=== PATIENT | female | born 1945 | race Caucasian/White ===

== ENCOUNTER → 2016-07-06 | Outpatient (CLI) | payer MEDICARE ==
--- NOTE | 2016-07-06 14:51 | REPMRS ---
Patient History The patient states she had a clinical breast exam in 07/14 Patient is postmenopausal. No known family history of cancer. Took hormonal contraceptives for 2 years. Took estrogen for 3 months. Took progesterone for 3 months. Digital Woman Screen Mammo: July 06, 2016 - Exam #: [id number] Bilateral CC and MLO view(s) were taken. Technologist: Kala Skinner, Technologist Prior study comparison: May 16, 2015, digital woman screen mammo performed at [facility]. May 04, 2013, bilateral bilat screen digital mammo, performed at [facility] ([facility]). April 30, 2011, bilateral digital mammo screening bilat, performed at [facility] ([facility]). FINDINGS: There are scattered fibroglandular densities. There has been no change in the appearance of the mammogram from the prior studies. There is a mild amount of scattered fibroglandular density which is fairly symmetric. There is no interval development of dominant mass, architectural distortion, or clustered microcalcification suggestive of malignancy. ASSESSMENT: BI-RADS/ACR category 1 mammogram. Negative. Recommendation Routine screening mammogram in 1 year (for women over age 40). This mammogram was interpreted with the aid of an FDA-approved computer-aided dectection system. Electronically Signed By: Cyril Myrick MD 07/06/16 0213
== END ==
LOC: M WHC 13:49
PROVIDERS: ATTEND Nurse Practitioner Family
DX: Z12.31 Encounter for screening mammogram for malignant neoplasm of breast (principal); Z78.0 Asymptomatic menopausal state
CPT/HCPCS: G0202; G0463

== ENCOUNTER → 2016-12-01 | Outpatient (REF) | payer MEDICARE ==
[~2016-12-01] MED LIST: ALBU17IN INH; ASPI81TA85 PO; ATEN25TA PO; ATOR1TAB21 PO; CALC600T21 PO; CLAR10CA3 PO; LOSA100T36 PO; MONT10TA2 PO
[2016-12-01 15:44] LABS: ALBUMIN 3.7 GM/DL (3.2-5.2); ALBUMIN/GLOBULIN RATIO 1.19 (1.00-1.93); BILIRUBIN,TOTAL 0.8 MG/DL (0.2-1.0); CREATININE FOR GFR 1.14 MG/DL (0.55-1.02); POTASSIUM SERUM 4.3 MEQ/L (3.5-5.1); TOTAL PROTEIN 6.8 GM/DL (6.4-8.2)
== END ==
LOC: M SFHCLACO 08:53
PROVIDERS: ATTEND Physician Assistant
DX: I10 Essential (primary) hypertension (principal); E78.2 Mixed hyperlipidemia; E55.9 Vitamin D deficiency, unspecified

== ENCOUNTER → 2016-12-11 | Outpatient (REF) | payer MEDICARE ==
[~2016-12-11] MED LIST changes: -CALC600T21 PO; +CALC600T60 PO
== END ==
LOC: M SFHCLACO 10:54
PROVIDERS: ATTEND Physician Assistant
DX: R73.9 Hyperglycemia, unspecified (principal)
CPT/HCPCS: 36415; 83036; 93005; G0463

== ENCOUNTER → 2016-12-15 | Outpatient (CLI) | payer MEDICARE ==
[~2016-12-15] MED LIST changes: +CALC600T21 PO; -CALC600T60 PO
[2016-12-15 14:18] LABS: ANION GAP 3 MEQ/L (8-16); BLOOD UREA NITROGEN 12 MG/DL (7-18); CALCIUM LEVEL 9.8 MG/DL (8.8-10.2); CARBON DIOXIDE LEVEL 33 MEQ/L (21-32); CHLORIDE LEVEL 106 MEQ/L (98-107); CREATININE FOR GFR 0.94 MG/DL (0.55-1.02); GLOMERULAR FILTRATION RATE > 60.0 (>39); GLUCOSE, FASTING 97 MG/DL (83-110); POTASSIUM SERUM 4.3 MEQ/L (3.5-5.1); SODIUM LEVEL 142 MEQ/L (136-145)
== END ==
LOC: M LAB 12:21
PROVIDERS: ATTEND Ophthalmology
DX: H25.12 Age-related nuclear cataract, left eye (principal)

== ENCOUNTER → 2016-12-31 | Day surgery (SDC) | payer MEDICARE ==
[~2016-12-31] VITALS: Ht 157.5 cm; Wt 71.2 kg
[~2016-12-31] MED LIST changes: -CALC600T21 PO; +CALC600T60 PO; +DUOVISC (0.50ML VISCOAT/0.55ML PROVISC) OPHTH KIT As Ordered ONE; +LR 500 ML IV ONE; +MIDAZOLAM INJ 2 MG/2 ML VIAL (J2250) As Ordered ONE; +fentaNYL 100 MCG/2 ML INJECTION (J3010) As Ordered ONE
[2016-12-31] MEDS: PROPARACAINE 0.5% OPHTH SOL 15ML OS ONE (07:24)
[2016-12-31] MEDS: OFLOXACIN 0.3 % (OCUFLOX) OPTH SOL 5ML OS ONE (07:26)
[2016-12-31] MEDS: TROPICAMIDE 1% OPHTH SOLN 2ML OS ONE (07:27)
[2016-12-31] MEDS: PHENYLEPHRINE 2.5% OPHTH SOL 2ML OS ONE (07:28)
[2016-12-31] MEDS: POVIDONE-IODINE 5% OPHTH PREP SOL 30ML As Ordered ONE (08:23)
[2016-12-31] MEDS: LIDOCAINE 4% INJ 5 ML AMP As Ordered ONE (08:26)
[2016-12-31] MEDS: BALANCED SALT IRRIGATION SOLUTION 500ML BAG (FOR OR EYE MACHINE) As Ordered ONE (08:37)
[2016-12-31] MEDS: LIDOCAINE 0.75%/EPINEPHRINE 0.025% IN BSS 1ML SYR INTRACAMERAL (OR ONLY) As Ordered ONE (08:38)
[2016-12-31] MEDS: CEFUROXIME 1MG/0.1ML INTRACAMERAL INJ As Ordered ONE (08:38)
[2016-12-31] MEDS: ACETYLCHOLINE OPHTH SOLN 1% 2ML (MIOCHOL-E) As Ordered ONE (08:38)
[2016-12-31] MEDS: DUOVISC (0.50ML VISCOAT/0.55ML PROVISC) OPHTH KIT As Ordered ONE (08:38)
[2016-12-31 09:15] VITALS: BP 146/72
--- NOTE | 2017-01-01 22:52 | RO ---
DATE OF PROCEDURE: 12/31/2016 PREOPERATIVE DIAGNOSES: 1. Dense visually significant nuclear sclerotic cataract left eye. 2. Small pupil left eye. POSTOPERATIVE DIAGNOSES: 1. Dense visually significant nuclear sclerotic cataract left eye. 2. Small pupil left eye. 3. Intraoperative floppy iris syndrome left eye. PROCEDURE: Complex cataract extraction with insertion of intraocular lens implant AU00T0, 22.5 diopters, left eye, with use of Malyugin ring. SURGEON: Mendoza Hicks DO SILVERWARE BUFFING MACHINE OPERATOR: ANESTHESIA: Local with monitored anesthesia care (MAC) COMPLICATIONS: None. POSTOPERATIVE CONDITION: Stable. INDICATION FOR SURGERY: Blurred vision left eye affecting patient's activities of daily living. DESCRIPTION OF PROCEDURE: The patient was seen in the preoperative area and properly identified. The correct operative eye was identified and marked. Attention was turned to that eye. The patient received optical antibiotics in the preoperative area. The patient then received topical dilating drops consisting of tropicamide and phenylephrine. The patient was then transferred to the operating room. The correct side was reidentified. The patient received topical anesthetics and antibiotics on the surface of the eye. The eye was prepped and draped in a sterile fashion. The upper and lower eyelids were isolated with Tegaderm tape, and the lids were held open with an adjustable speculum. Using a sideport blade, a paracentesis incision was made. Shugarcaine was then injected into the anterior chamber. Viscoelastic was then injected into the anterior chamber through the paracentesis. Using a 2.6 mm sharp-tipped keratome, the anterior chamber was entered via a temporal clear corneal incision. A 7mm Malyugin ring was placed without difficulty. A continuous curvilinear capsulorrhexis was created with the aid of a 26-gauge cystotome and Utrata forceps. Hydrodissection was performed with BSS on a blunt cannula until the nucleus was freely mobile. The crystalline lens was phacoemulsified and aspirated. Additional cohesive viscoelastic was placed into the capsular bag to deepen it. An AU00T0, 22.5 diopter lens was placed into the capsular bag and confirmed by visualizing the continuous curvilinear capsulorrhexis. The Malyugin ring was removed from the eye. Additional irrigation and aspiration was used to remove cortical material. The Malyugin ring was removed from the eye, and irrigation and aspiration was then used removing the remaining viscoelastic. The clear corneal incision was hydrated with BSS on a blunt cannula. The lens was well positioned. The incisions were then tested for leaks and found to be negative. The eye was then palpated for appropriate pressure and adjusted accordingly with BSS. The eyelid speculum was then carefully removed. A shield was placed over the eye. The patient tolerated the procedure well and was discharged to the recovery unit in a stable condition. RONNIE
== END | disposition home or self-care (01) ==
LOC: M SDC 07:01
PROVIDERS: ATTEND Ophthalmology
DX: H25.12 Age-related nuclear cataract, left eye (principal); H57.03 Miosis; H21.81 Floppy iris syndrome; E78.5 Hyperlipidemia, unspecified; I10 Essential (primary) hypertension; J45.909 Unspecified asthma, uncomplicated; R01.1 Cardiac murmur, unspecified; I35.0 Nonrheumatic aortic (valve) stenosis; I44.7 Left bundle-branch block, unspecified; K21.9 Gastro-esophageal reflux disease without esophagitis; M54.32 Sciatica, left side; R73.9 Hyperglycemia, unspecified; J30.9 Allergic rhinitis, unspecified; Z88.6 Allergy status to analgesic agent; Z79.899 Other long term (current) drug therapy; Z79.82 Long term (current) use of aspirin; Z87.42 Personal history of other diseases of the female genital tract; Z98.51 Tubal ligation status
CPT/HCPCS: 66982; J2250; J3010; V2632

== ENCOUNTER 2017-02-04 09:43 | Day surgery (SDC) | payer MEDICARE ==
[~2017-02-04 09:43] MED LIST changes: +ACETYLCHOLINE OPHTH SOLN 1% 2ML (MIOCHOL-E) As Ordered ONE; +BALANCED SALT IRRIGATION SOLUTION 500ML BAG (FOR OR EYE MACHINE) As Ordered ONE; +LIDOCAINE 0.75%/EPINEPHRINE 0.025% IN BSS 1ML SYR INTRACAMERAL (OR ONLY) As Ordered ONE; +LIDOCAINE 4% INJ 5 ML AMP As Ordered ONE; -LR 500 ML IV ONE; +OFLOXACIN 0.3 % (OCUFLOX) OPTH SOL 5ML XX ONE; +PHENYLEPHRINE 2.5% OPHTH SOL 2ML XX ONE; +POVIDONE-IODINE 5% OPHTH PREP SOL 30ML As Ordered ONE; +PROPARACAINE 0.5% OPHTH SOL 15ML XX ONE; +TROPICAMIDE 1% OPHTH SOLN 2ML XX ONE
[2017-02-04] MEDS ORDERED: D5W/0.2% SODIUM CHLORIDE 250 ML IV ONE (10:00)
[2017-02-04 12:15] VITALS: BP 138/84
[2017-02-04] MEDS ORDERED: CEFUROXIME 1MG/0.1ML INTRACAMERAL INJ As Ordered ONE (14:27)
--- NOTE | 2017-02-05 07:05 | RO ---
DATE OF PROCEDURE: 02/04/2017 PREOPERATIVE DIAGNOSIS: Visually significant nuclear sclerotic cataract right eye. POSTOPERATIVE DIAGNOSIS: Visually significant nuclear sclerotic cataract right eye. PROCEDURE: Cataract extraction with use of phacoemulsification, and placement of intraocular lens, AU00T0, 22.5 diopter right eye. SURGEON: Mendoza Hicks DO CONCRETE SPREADER: ANESTHESIA: Local with monitored anesthesia care (MAC). COMPLICATIONS: None. POSTOPERATIVE CONDITION: Stable. INDICATION FOR SURGERY: Blurred vision right eye affecting patient's activities of daily living. DESCRIPTION OF PROCEDURE: The patient was seen in the preoperative area and properly identified. The correct operative eye was identified and marked. Attention was turned to that eye. The patient received topical antibiotics in the preoperative area. The patient then received topical dilating drops consisting of Tropicamide and Phenylephrine. The patient was then transferred to the operating room. The correct side was re-identified. The patient received topical anesthetics and antibiotics on the surface of the eye. The eye was prepped and draped in a sterile fashion. The upper and lower eyelids were isolated with Tegaderm tape, and the lids were held open with an adjustable speculum. Using a sideport blade, a paracentesis incision was made. Intraocular preservative-free lidocaine was then injected into the anterior chamber. Viscoelastic was then injected into the anterior chamber through the paracentesis. Using a 2.65 mm sharp-tipped keratome, the anterior chamber was entered via a temporal clear corneal incision. A continuous curvilinear capsulorrhexis was created with the aid of a 26g cystotome and utrata forceps. Hydrodissection was performed with balanced salt solution (BSS) on a blunt cannula until the nucleus was freely mobile. The crystalline lens was phacoemulsified and aspirated. Additional cohesive viscoelastic was placed into the capsular bag to deepen it. An AU00T0, 22.5 diopter lens was placed into the capsular bag and confirmed by visualizing the continuous curvilinear capsulorrhexis. Additional irrigation and aspiration was used to remove cortical material and remaining viscoelastic. The clear corneal incision was hydrated with BSS on a blunt cannula. The lens was well positioned. The incisions were then tested for leaks and found to be negative. The eye was then palpated for appropriate pressure and adjusted accordingly with BSS. The eyelid speculum was carefully removed. A shield was placed over the eye. The patient tolerated the procedure well and was discharged to the recovery unit in a stable condition. RONNIE
== END 2017-02-04 12:20 | disposition home or self-care (01) ==
LOC: M SDC 09:43
PROVIDERS: ATTEND Ophthalmology
DX: H25.11 Age-related nuclear cataract, right eye (principal); I10 Essential (primary) hypertension; E78.5 Hyperlipidemia, unspecified; K21.9 Gastro-esophageal reflux disease without esophagitis; J45.909 Unspecified asthma, uncomplicated; Z79.82 Long term (current) use of aspirin; Z79.899 Other long term (current) drug therapy; Z88.8 Allergy status to other drugs, medicaments and biological substances
CPT/HCPCS: 66984; J2250; J3010; V2632

== ENCOUNTER → 2017-07-06 | Outpatient (REF) | payer MEDICARE ==
[2017-07-06 15:16] LABS: ALBUMIN 3.7 GM/DL (3.2-5.2); ALBUMIN/GLOBULIN RATIO 1.12 (1.00-1.93); ALKALINE PHOSPHATASE 96 U/L (45-117); ALT/SGPT 23 U/L (12-78); ANION GAP 6 MEQ/L (8-16); AST/SGOT 18 U/L (7-37); BILIRUBIN,TOTAL 0.7 MG/DL (0.2-1.0); BLOOD UREA NITROGEN 12 MG/DL (7-18); CALCIUM LEVEL 9.5 MG/DL (8.8-10.2); CARBON DIOXIDE LEVEL 31 MEQ/L (21-32); CHLORIDE LEVEL 106 MEQ/L (98-107); CHOLESTEROL LEVEL 160 MG/DL (<200); CHOLESTEROL RISK RATIO 3.404 (<5); CREATININE FOR GFR 0.98 MG/DL (0.55-1.02); GLOMERULAR FILTRATION RATE 59.6 (>39); GLUCOSE, FASTING 111 MG/DL (83-110); HDL CHOLESTEROL 47 MG/DL (>40); LDL CHOLESTEROL 81.2 MG/DL (<100); NON-HDL-C 113 MG/DL; SODIUM LEVEL 143 MEQ/L (136-145); TRIGLYCERIDES LEVEL 159 MG/DL (<150)
[2017-07-06 15:23] LABS: ESTIMATED AVERAGE GLUCOSE 128 MG/DL (60-110); HEMOGLOBIN A1c 6.1 %
[2017-07-06 15:24] LABS: TOTAL 25(OH) VITAMIN D 44.4 NG/ML (30.0-100.0)
== END ==
LOC: M SFHCLACO 10:04
DX: I10 Essential (primary) hypertension (principal); E78.2 Mixed hyperlipidemia; R73.9 Hyperglycemia, unspecified; E55.9 Vitamin D deficiency, unspecified
CPT/HCPCS: 80053

== ENCOUNTER 2017-07-11 11:58 | Emergency (ER) | payer MEDICARE ==
[2017-07-11 13:19] LABS: KETONE, URINE AUTO RFX NEGATIVE (NEGATIVE); LEUKOCYTE ESTERASE UR AUTO RFX 2+ (NEGATIVE); MUCUS, URINE RFX SMALL (NEGATIVE); NITRITE, URINE AUTO RFX POSITIVE (NEGATIVE); RBC, URINE AUTO RFX 129 /HPF (0-3); SPECIFIC GRAVITY UR AUTO RFX 1.016 (1.002-1.035); SQUAM EPITHELIAL CELL UR AURFX 1 /HPF (0-6); WBC, URINE AUTO RFX TNTC /HPF (0-3)
[2017-07-11] MEDS ORDERED: LIDOCAINE 1% MDV 20ML VIAL As Ordered (13:44)
[2017-07-11] MEDS: cefTRIAXone SOD 1 GM VIAL (J0696) IM (14:00)
== END 2017-07-11 14:24 | disposition home or self-care (01) ==
LOC: M ED 11:58
DX: N39.0 Urinary tract infection, site not specified (principal); I10 Essential (primary) hypertension; E78.5 Hyperlipidemia, unspecified; K21.9 Gastro-esophageal reflux disease without esophagitis; J45.909 Unspecified asthma, uncomplicated; Z79.899 Other long term (current) drug therapy; Z79.82 Long term (current) use of aspirin
CPT/HCPCS: J0696

== ENCOUNTER → 2017-07-27 | Outpatient (REF) | payer MEDICARE | LOC: M SFHCLACO 10:39 | DX: I10 Essential (primary) hypertension (principal); E78.2 Mixed hyperlipidemia; E55.9 Vitamin D deficiency, unspecified ==

== ENCOUNTER → 2017-07-29 | Outpatient (REF) | payer MEDICARE ==
[2017-07-29 16:14] LABS: APPEARANCE, URINE HAZY (CLEAR); BACTERIA, URINE AUTO 1+ (NEGATIVE); BILIRUBIN, URINE AUTO NEGATIVE (NEGATIVE); BLOOD, URINE BLOOD 1+ (NEGATIVE); COLOR, URINE YELLOW (YELLOW); GLUCOSE, URINE (UA) AUTO NEGATIVE (NEGATIVE); KETONE, URINE AUTO NEGATIVE (NEGATIVE); LEUKOCYTE ESTERASE, URINE AUTO 3+ (NEGATIVE); NITRITE, URINE AUTO NEGATIVE (NEGATIVE); PROTEIN, URINE AUTO NEGATIVE (NEGATIVE); RBC, URINE AUTO 5 /HPF (0-3); SPECIFIC GRAVITY URINE AUTO 1.004 (1.002-1.035); SQUAMOUS EPITHELIAL CELL UR AU 0 /HPF (0-6); UROBILINOGEN, URINE AUTO 0.2 mg/dL (0.0-2.0); WBC, URINE AUTO 17 /HPF (0-3)
== END ==
LOC: M SFHCLACO 14:46
DX: N30.00 Acute cystitis without hematuria (principal)
CPT/HCPCS: 81001

== ENCOUNTER → 2017-10-05 | Outpatient (CLI) | payer MEDICARE | LOC: M WHC 14:26 | DX: Z12.31 Encounter for screening mammogram for malignant neoplasm of breast (principal); Z78.0 Asymptomatic menopausal state; Z12.4 Encounter for screening for malignant neoplasm of cervix; R87.610 Atypical squamous cells of undetermined significance on cytologic smear of cervix (ASC-US); Z92.0 Personal history of contraception; Z92.23 Personal history of estrogen therapy; Z12.12 Encounter for screening for malignant neoplasm of rectum | CPT/HCPCS: G0123 ==

== ENCOUNTER → 2018-01-04 | Outpatient (REF) | payer MEDICARE ==
[2018-01-04 15:45] LABS: TOTAL 25(OH) VITAMIN D 46.8 NG/ML (30.0-100.0)
[2018-01-04 15:49] LABS: ESTIMATED AVERAGE GLUCOSE 137 MG/DL (60-110); HEMOGLOBIN A1c 6.4 %
[2018-01-04 15:51] LABS: ALBUMIN 3.8 GM/DL (3.2-5.2); ALBUMIN/GLOBULIN RATIO 1.31 (1.00-1.93); ALKALINE PHOSPHATASE 94 U/L (45-117); ALT/SGPT 20 U/L (12-78); ANION GAP 6 MEQ/L (8-16); AST/SGOT 19 U/L (7-37); BILIRUBIN,TOTAL 0.8 MG/DL (0.2-1.0); BLOOD UREA NITROGEN 15 MG/DL (7-18); CALCIUM LEVEL 9.2 MG/DL (8.8-10.2); CARBON DIOXIDE LEVEL 31 MEQ/L (21-32); CHLORIDE LEVEL 107 MEQ/L (98-107); CHOLESTEROL LEVEL 133 MG/DL (<200); CHOLESTEROL RISK RATIO 3.166 (<5); CREATININE FOR GFR 1.11 MG/DL (0.55-1.30); GLOMERULAR FILTRATION RATE 51.4 (>39); GLUCOSE, FASTING 120 MG/DL (70-100); HDL CHOLESTEROL 42 MG/DL (>40); LDL CHOLESTEROL 55.6 MG/DL (<100); NON-HDL-C 91 MG/DL; POTASSIUM SERUM 4.3 MEQ/L (3.5-5.1); SODIUM LEVEL 144 MEQ/L (136-145); TOTAL PROTEIN 6.7 GM/DL (6.4-8.2); TRIGLYCERIDES LEVEL 177 MG/DL (<150)
== END ==
LOC: M SFHCLACO 09:16
DX: E78.2 Mixed hyperlipidemia (principal); I10 Essential (primary) hypertension; E11.9 Type 2 diabetes mellitus without complications; E55.9 Vitamin D deficiency, unspecified
CPT/HCPCS: 80053

== ENCOUNTER → 2018-04-05 | Outpatient (REF) | payer MEDICARE ==
[2018-04-05 13:03] LABS: ALBUMIN 3.9 GM/DL (3.2-5.2); ALBUMIN/GLOBULIN RATIO 1.34 (1.00-1.93); ALKALINE PHOSPHATASE 78 U/L (45-117); ALT/SGPT 19 U/L (12-78); ANION GAP 5 MEQ/L (8-16); AST/SGOT 21 U/L (7-37); BILIRUBIN,TOTAL 0.9 MG/DL (0.2-1.0); BLOOD UREA NITROGEN 22 MG/DL (7-18); CALCIUM LEVEL 10.1 MG/DL (8.8-10.2); CARBON DIOXIDE LEVEL 30 MEQ/L (21-32); CHLORIDE LEVEL 108 MEQ/L (98-107); CHOLESTEROL LEVEL 123 MG/DL (<200); CREATININE FOR GFR 1.12 MG/DL (0.55-1.30); GLOMERULAR FILTRATION RATE 50.9 (>39); GLUCOSE, FASTING 102 MG/DL (70-100); HDL CHOLESTEROL 41 MG/DL (>40); LDL CHOLESTEROL 59 MG/DL (<100); NON-HDL-C 82 MG/DL; POTASSIUM SERUM 4.7 MEQ/L (3.5-5.1); SODIUM LEVEL 143 MEQ/L (136-145); TOTAL PROTEIN 6.8 GM/DL (6.4-8.2); TRIGLYCERIDES LEVEL 114 MG/DL (<150)
[2018-04-05 13:56] LABS: TOTAL 25(OH) VITAMIN D 62.1 NG/ML (30.0-100.0)
[2018-04-05 23:30] LABS: ESTIMATED AVERAGE GLUCOSE 117 MG/DL (60-110); HEMOGLOBIN A1c 5.7 %
== END ==
LOC: M SFHCADAM 09:15
DX: I10 Essential (primary) hypertension (principal); E78.2 Mixed hyperlipidemia; E11.9 Type 2 diabetes mellitus without complications; E55.9 Vitamin D deficiency, unspecified
CPT/HCPCS: 80053

== ENCOUNTER → 2018-09-26 | Outpatient (REF) | payer MEDICARE ==
[~2018-09-26] MED LIST changes: -ACETYLCHOLINE OPHTH SOLN 1% 2ML (MIOCHOL-E) As Ordered ONE; -BALANCED SALT IRRIGATION SOLUTION 500ML BAG (FOR OR EYE MACHINE) As Ordered ONE; -DUOVISC (0.50ML VISCOAT/0.55ML PROVISC) OPHTH KIT As Ordered ONE; +KEFL500C17 PO; -LIDOCAINE 0.75%/EPINEPHRINE 0.025% IN BSS 1ML SYR INTRACAMERAL (OR ONLY) As Ordered ONE; -LIDOCAINE 4% INJ 5 ML AMP As Ordered ONE; -LOSA100T36 PO; +LOSA100T50 PO; -MIDAZOLAM INJ 2 MG/2 ML VIAL (J2250) As Ordered ONE; -OFLOXACIN 0.3 % (OCUFLOX) OPTH SOL 5ML XX ONE; -PHENYLEPHRINE 2.5% OPHTH SOL 2ML XX ONE; -POVIDONE-IODINE 5% OPHTH PREP SOL 30ML As Ordered ONE; -PROPARACAINE 0.5% OPHTH SOL 15ML XX ONE; +RANI150T PO; -TROPICAMIDE 1% OPHTH SOLN 2ML XX ONE; -fentaNYL 100 MCG/2 ML INJECTION (J3010) As Ordered ONE
[2018-09-26 13:11] LABS: ALBUMIN 3.8 GM/DL (3.2-5.2); BILIRUBIN,TOTAL 0.7 MG/DL (0.2-1.0); CALCIUM LEVEL 9.2 MG/DL (8.8-10.2); CHOLESTEROL RISK RATIO 2.584 (<5); CREATININE FOR GFR 1.05 MG/DL (0.55-1.30); GLOMERULAR FILTRATION RATE 54.8 (>39); POTASSIUM SERUM 4.4 MEQ/L (3.5-5.1); TOTAL 25(OH) VITAMIN D 58.1 NG/ML (30.0-100.0); TOTAL PROTEIN 7.2 GM/DL (6.4-8.2)
[2018-09-26 14:44] LABS: HEMOGLOBIN A1c 5.9 %
== END ==
LOC: M SFHCADAM 08:58
PROVIDERS: ATTEND Physician Assistant
DX: I10 Essential (primary) hypertension (principal); E78.2 Mixed hyperlipidemia; E11.9 Type 2 diabetes mellitus without complications; E55.9 Vitamin D deficiency, unspecified

== ENCOUNTER → 2018-10-06 | Outpatient (CLI) | payer MEDICARE ==
--- NOTE | 2018-10-06 17:18 | REPMRS ---
Patient History The patient states she had a clinical breast exam in 09/2018. No known family history of cancer. Took hormonal contraceptives for 2 years. Took estrogen for 3 months. Took progesterone for 3 months. Digital Woman Screen Mammo: October 06, 2018 - Exam #: [id number] Bilateral CC and MLO view(s) were taken. Technologist: Kala Skinner, Technologist Prior study comparison: October 05, 2017, digital woman screen mammo performed at [facility]. July 06, 2016, digital woman screen mammo performed at [facility]. May 16, 2015, digital woman screen mammo performed at [facility]. FINDINGS: There are scattered fibroglandular densities. There has been no change in the appearance of the mammogram from the prior studies. There is a mild amount of scattered fibroglandular density which is fairly symmetric. There is no interval development of dominant mass, architectural distortion, or clustered microcalcification suggestive of malignancy. 3-D tomosynthesis shows no additional findings. Assessment: BI-RADS/ACR category 1 mammogram. Negative Mammogram. Recommendation Routine screening mammogram of both breasts in 1 year (for women over age 40). This patient's Lifetime Breast Cancer RIsk is estimated at 3.6 %. This mammogram was interpreted with the aid of an FDA-approved computer-aided dectection system. Electronically Signed By: Cyril Myrick MD 10/06/18 6829
== END ==
LOC: M WHC 13:39
PROVIDERS: ATTEND Nurse Practitioner Family
DX: Z12.31 Encounter for screening mammogram for malignant neoplasm of breast (principal); Z92.0 Personal history of contraception; Z92.23 Personal history of estrogen therapy; Z92.29 Personal history of other drug therapy

== ENCOUNTER → 2019-04-03 | Outpatient (REF) | payer MEDICARE ==
[2019-04-03 13:55] LABS: ALBUMIN 3.6 GM/DL (3.2-5.2); BILIRUBIN,TOTAL 0.8 MG/DL (0.2-1.0); CALCIUM LEVEL 9.3 MG/DL (8.8-10.2); CHOLESTEROL RISK RATIO 2.68 (<5); CREATININE FOR GFR 1.11 MG/DL (0.55-1.30); GLOMERULAR FILTRATION RATE 51.3 (>39); POTASSIUM SERUM 4.2 MEQ/L (3.5-5.1); TOTAL PROTEIN 6.7 GM/DL (6.4-8.2)
[2019-04-03 13:58] LABS: HEMOGLOBIN A1c 5.9 %
== END ==
LOC: M SFHCADAM 09:11
PROVIDERS: ATTEND Physician Assistant
DX: I10 Essential (primary) hypertension (principal); E78.2 Mixed hyperlipidemia; E11.9 Type 2 diabetes mellitus without complications

== ENCOUNTER → 2020-03-25 | Outpatient (CLI) | payer MEDICARE ==
[~2020-03-25] MED LIST changes: -ASPI81TA85 PO; +ASPI81TA86 PO; -MONT10TA2 PO; +MONT10TA4 PO
--- NOTE | 2020-03-25 14:10 | REPMRS ---
Patient History The patient states she had a clinical breast exam in February 2020.No known family history of cancer. Took hormonal contraceptives for 2 years. Took estrogen for 3 months. Took progesterone for 3 months. 3D TOMOSYNTHESIS WAS PERFORMED. [facility] for [facility] is 3.4%. VOLCAITYA NITHYA B. Digital Woman Screen Mammo: March 25, 2020 - Exam #: [id number] Bilateral CC and MLO view(s) were taken. Technologist: Kimberly Martinez, Technologist Prior study comparison: October 06, 2018, bilateral digital woman screen mammo performed at [facility]. October 05, 2017, digital woman screen mammo performed at [facility]. FINDINGS: There are scattered fibroglandular densities. There has been no change in the appearance of the mammogram from the prior studies. There is a mild amount of residual fibroglandular tissue which is fairly symmetric. There is no interval development of dominant mass, architectural distortion, or clustered microcalcification suggestive of malignancy. Assessment: BI-RADS/ACR category 1 mammogram. Negative Mammogram. Recommendation Routine screening mammogram in 1 year (for women over age 40). This mammogram was interpreted with the aid of an FDA-approved computer-aided dectection system. Electronically Signed By: Dein Wilson MD 03/25/20 7992
== END ==
LOC: M WHC 13:11
PROVIDERS: ATTEND Nurse Practitioner Family
DX: Z12.31 Encounter for screening mammogram for malignant neoplasm of breast (principal); Z92.0 Personal history of contraception; Z92.23 Personal history of estrogen therapy; Z92.29 Personal history of other drug therapy

== ENCOUNTER → 2020-04-02 | Outpatient (REF) | payer MEDICARE ==
[2020-04-02 14:13] LABS: ALBUMIN 3.8 GM/DL (3.2-5.2); BILIRUBIN,TOTAL 0.7 MG/DL (0.2-1.0); CALCIUM LEVEL 10.2 MG/DL (8.8-10.2); CHOLESTEROL RISK RATIO 3.187 (<5); CREATININE FOR GFR 1.04 MG/DL (0.55-1.30); GLOMERULAR FILTRATION RATE 55.1 (>39); POTASSIUM SERUM 4.4 MEQ/L (3.5-5.1)
[2020-04-02 14:55] LABS: HEMOGLOBIN A1c 5.7 %
== END ==
LOC: M SFHCADAM 08:52
PROVIDERS: ATTEND Physician Assistant
DX: E78.2 Mixed hyperlipidemia (principal); I10 Essential (primary) hypertension; E11.9 Type 2 diabetes mellitus without complications

== ENCOUNTER 2020-06-10 12:00 | Emergency (ER) | payer MEDICARE ==
[~2020-06-10] VITALS: Ht 157.5 cm; Wt 68.2 kg
[~2020-06-10 12:00] MED LIST changes: -MONT10TA4 PO; +MONT5TAB2 PO
[2020-06-10] MEDS ORDERED: VITA50005 PO (12:24)
[2020-06-10] MEDS ORDERED: FAMO20TA PO (12:24)
[2020-06-10] MEDS ORDERED: IRBE300T7 PO (12:24)
[2020-06-10 12:57] LABS: BASO % 0.2 % (0.0-1.0); EOS % 0.1 % (0.0-3.0); HEMATOCRIT 46.4 % (36.0-47.0); HEMOGLOBIN 14.6 g/dl (12.0-15.5); LYMPH # 0.6 10^3/uL (1.5-5.0); LYMPH % 3.4 % (24.0-44.0); MEAN CORPUSCULAR HEMOGLOBIN 29.3 pg (27.0-33.0); MEAN CORPUSCULAR HGB CONC 31.5 g/dl (32.0-36.5); MONO # 1.4 10^3/uL (0.0-0.8); MONO % 8.6 % (0.0-5.0); NEUTROPHILS # 14.2 10^3/uL (1.5-8.5); NEUTROPHILS % 87.1 % (36.0-66.0); PLATELET COUNT, AUTOMATED 177 10^3/uL (150-450); RED BLOOD COUNT 4.99 10^6/uL (4.00-5.40); WHITE BLOOD COUNT 16.2 10^3/uL (4.0-10.0)
[2020-06-10] MEDS ORDERED: MORPHINE 2 MG/ML 1ML VIAL (J2270) IV ONE (13:00)
[2020-06-10] MEDS ORDERED: ONDANSETRON 4MG/2ML VIAL IV ONE (13:00)
[2020-06-10 13:07] LABS: INR 0.92; PROTHROMBIN TIME 12.6 SECONDS (12.5-14.3)
[2020-06-10 13:30] LABS: ALBUMIN 3.9 GM/DL (3.2-5.2); BILIRUBIN,DIRECT 0.5 MG/DL (0.0-0.2); BILIRUBIN,TOTAL 2.1 MG/DL (0.2-1.0); CALCIUM LEVEL 9.6 MG/DL (8.8-10.2); CREATININE FOR GFR 1.31 MG/DL (0.55-1.30); GLOMERULAR FILTRATION RATE 42.3 (>39); POTASSIUM SERUM 4.2 MEQ/L (3.5-5.1); TOTAL PROTEIN 7.2 GM/DL (6.4-8.2)
--- NOTE | 2020-06-10 13:41 | REP ---
INDICATION: appi vs renal calc rlq COMPARISON: None. TECHNIQUE: Helical scanning is acquired in 4 mm axial images were reformatted. Coronal and sagittal MPR images were generated and reviewed. FINDINGS: Preliminary digital apparatus repair mechanic radiograph demonstrates left colonic stool and mild gaseous distention of the right colon. There is minimal platelike atelectasis in the right lung base. Lung bases are otherwise clear. No pleural effusion is seen. The liver and spleen are normal in size homogeneous in texture. Normal adrenal glands are seen. No abnormality is noted in the pancreas. The gallbladder however is moderately to markedly dilated measuring up to 13.4 cm in greatest dimension. There is a peripherally calcified 10 mm gallstone in the gallbladder fundus. There is mild pericholecystic edema and fluid. Findings are suggestive of acute cholecystitis. No free ascites is seen. There is no evidence hydronephrosis or mass in either kidney. There is a tiny intrarenal calculus in the lower pole of the left kidney. No ureteral stone is seen. No retroperitoneal mass or adenopathy is observed. There is left colonic diverticulosis fairly extensively in the sigmoid colon without CT evidence of diverticulitis. A normal very small appendix is seen in the right lower quadrant. No uterine or adnexal abnormality is seen. Urinary bladder is unremarkable. No abdominal wall defect is seen. Bone window settings show no bony destructive lesion. There are degenerative spondylosis changes in the lumbar spine. IMPRESSION: Findings compatible with acute cholecystitis with distension, 13 cm, of the gallbladder, pericholecystic edema and fluid. There is at least 1 opaque gallstone. The there is an intrarenal calculus in the lower pole left kidney but no hydronephrosis. A normal appendix is seen. There is extensive left colonic diverticulosis without CT evidence of diverticulitis. <Electronically signed by Cyril Myrick > 06/10/20 8584
[2020-06-10 14:12] VITALS: BP 116/70
[2020-06-10] MEDS ORDERED: ZOFR4TAB16 PO (14:15)
[2020-06-10] MEDS ORDERED: NORC1TAB7 PO (14:15)
[2020-06-10] MEDS ORDERED: AUGM875T28 PO (14:15)
== END 2020-06-10 14:27 | disposition home or self-care (01) ==
LOC: M ED 12:00
DX: K80.01 Calculus of gallbladder with acute cholecystitis with obstruction (principal); I10 Essential (primary) hypertension; K57.30 Diverticulosis of large intestine without perforation or abscess without bleeding; Z79.51 Long term (current) use of inhaled steroids; Z79.82 Long term (current) use of aspirin; Z79.899 Other long term (current) drug therapy; Z88.6 Allergy status to analgesic agent
CPT/HCPCS: 74176; 80048; 80076; 83690; 85025; 85610; 96374; 96375; 99284; J2270; J2405

== ENCOUNTER 2020-06-14 14:07 | Emergency (ER) | payer MEDICARE ==
[~2020-06-14] VITALS: Ht 157.5 cm; Wt 71.4 kg
[~2020-06-14 14:07] MED LIST changes: +AUGM875T28 PO; +FAMO20TA PO; +IRBE300T7 PO; +NORC1TAB7 PO; +VITA50005 PO; +ZOFR4TAB16 PO
[2020-06-14 15:33] LABS: BASO % 0.1 % (0.0-1.0); EOS % 0.1 % (0.0-3.0); HEMATOCRIT 40.5 % (36.0-47.0); HEMOGLOBIN 12.8 g/dl (12.0-15.5); LYMPH # 0.4 10^3/uL (1.5-5.0); LYMPH % 2.7 % (24.0-44.0); MEAN CORPUSCULAR HEMOGLOBIN 28.9 pg (27.0-33.0); MEAN CORPUSCULAR HGB CONC 31.6 g/dl (32.0-36.5); MEAN CORPUSCULAR VOLUME 91.4 fl (80.0-96.0); MONO # 1.2 10^3/uL (0.0-0.8); NEUTROPHILS # 12.9 10^3/uL (1.5-8.5); NEUTROPHILS % 88.5 % (36.0-66.0); PLATELET COUNT, AUTOMATED 207 10^3/uL (150-450); RED BLOOD COUNT 4.43 10^6/uL (4.00-5.40); WHITE BLOOD COUNT 14.6 10^3/uL (4.0-10.0)
[2020-06-14 15:45] LABS: ALBUMIN 2.7 GM/DL (3.2-5.2); BILIRUBIN,DIRECT 0.5 MG/DL (0.0-0.2); CALCIUM LEVEL 9.6 MG/DL (8.8-10.2); CREATININE FOR GFR 1.42 MG/DL (0.55-1.30); GLOMERULAR FILTRATION RATE 38.5 (>39); POTASSIUM SERUM 3.7 MEQ/L (3.5-5.1); TOTAL PROTEIN 6.6 GM/DL (6.4-8.2)
--- NOTE | 2020-06-14 16:53 | REP ---
INDICATION: cholecyst on Wednesday, concern for worsening. COMPARISON: Abdomen pelvis CT dated 06/10/2020. TECHNIQUE: Right upper quadrant abdominal ultrasound. FINDINGS: In spite of the clinical history stating cholecystectomy on Wednesday, the gallbladder appears to be present. The gallbladder is distended and there is a large volume of debris along the dependent wall of the gallbladder. The gallbladder wall is diffusely thickened measuring up to 5.5 mm. However, no pericholecystic fluid is identified. The common biliary duct is markedly dilated measuring up to 7.4 mm. There is echogenic material in the visualized portion of the common duct which could be sludge or calculus. The hepatic parenchyma is homogeneous and otherwise unremarkable. The visualized areas of the pancreatic body and head are unremarkable. The tail is obscured by bowel gas. The right kidney is normal size measuring 9.2 x 4.3 x 4.1 cm. There is no right renal calculus or hydronephrosis. There is no right renal solid or cystic mass. There is right upper quadrant abdominal free fluid. IMPRESSION: The gallbladder remains in the abdominal right upper quadrant. The gallbladder is distended there is a large volume of echogenic material along the dependent wall of the gallbladder which could be sludge, debris, calculi or combination. On a least 1 of the images there appears to be rim calcification from a calculus near the gallbladder fundus. The gallbladder wall is diffusely thickened. No pericholecystic fluid is identified. The proximal common biliary duct is dilated measuring up to 7 mm. There is echogenic material within the common duct which could be sludge, calculus or combination. <Electronically signed by Deni Appiah > 06/14/20 2921
[2020-06-14] MEDS ORDERED: LEVO750T14 PO (18:50)
[2020-06-14] MEDS ORDERED: LevoFLOXacin 750 MG TABLET PO ONE (19:00)
[2020-06-14 19:14] VITALS: BP 110/62
--- NOTE | 2020-06-18 19:24 | ED PDOC ---
Post-Departure Follow-Up dr blount and shawna santoyo faxed formal report of us for fu Miya Carter MD Jun 18, 2020 19:24
== END 2020-06-14 19:15 | disposition home or self-care (01) ==
LOC: M ED 14:07
DX: K80.20 Calculus of gallbladder without cholecystitis without obstruction (principal); R19.7 Diarrhea, unspecified; T36.95XA Adverse effect of unspecified systemic antibiotic, initial encounter; X58.XXXA Exposure to other specified factors, initial encounter; Y92.89 Other specified places as the place of occurrence of the external cause; I10 Essential (primary) hypertension; J45.909 Unspecified asthma, uncomplicated; E78.5 Hyperlipidemia, unspecified; K21.9 Gastro-esophageal reflux disease without esophagitis; R01.1 Cardiac murmur, unspecified; Z79.899 Other long term (current) drug therapy; Z79.82 Long term (current) use of aspirin; Z88.0 Allergy status to penicillin; Z88.8 Allergy status to other drugs, medicaments and biological substances

== ENCOUNTER → 2020-07-28 | Outpatient (CLI) | payer MEDICARE ==
[~2020-07-28] MED LIST changes: +ASPI81TA26 PO; +LEVO750T14 PO; +OMEG12003 PO; +VENTAER INH; +VITA-243 PO
== END ==
LOC: M LABSMTC 10:07
PROVIDERS: ATTEND Anesthesiology
DX: Z01.812 Encounter for preprocedural laboratory examination (principal); Z20.822 Contact with and (suspected) exposure to COVID-19

== ENCOUNTER 2020-08-02 10:45 | Day surgery (SDC) | payer MEDICARE ==
[~2020-08-02] VITALS: Ht 157.5 cm; Wt 65.3 kg
[~2020-08-02 10:45] MED LIST changes: +LR 1,000 ML IV ONE; +MONT10TA10 PO; -MONT5TAB2 PO
--- OUTSIDE RECORDS SUMMARY | 2020-08-02 10:50 | CCD ---
Author Author [facility] Organization [facility] Address Unknown Phone Unavailable Care Team Providers Care Junior Programmer Analyst Name Role Phone Brandie Alexander Unavailable PROBLEMS Type Condition ICD9-CM Code [id number] Code Onset Dates Condition S tatus SNOMED Code Notes Problem Mixed hyperlipidemia E78.2 Active 250018633 W ell controlled on current regimen of atorvastatin and fish oil, no medication changes have been made Problem Aortic valve disorder I35.9 Active 1466087 Problem Esophageal reflux K21.9 Active 578617602 Well controlled on current regimen of famotidine, no medication changes have been made Problem Uterine prolapse N81.4 Active 34182404 Problem Allergic rhinitis due to pollen J30.1 Active 83194040 Problem Controlled type 2 diabetes m ellitus without complication, without long- term current use of insulin E11.9 Active 21945479 4 She will continue therapeutic lifestyle changes Problem Essential hypertension I10 Active 78234860 Well controlled on current regimen of atenolol and irbesartan, no medication changes have been made Problem Asthma J45.909 Active 643242128 Well controlle d on current regimen of Ventolin and Singulair, no medication changes have been made Problem Vitamin D deficiency E55.[address] mari 50,000 units, no medication changes have been made Problem Cystocele N81.10 Active 907985893 ALLERGIES No Known Allergies ENCOUNTERS from 1945 to 2020-07-10 Encounter Location Date Provider Diagnosis [facility] [address] [place] [address] Jun, Adair Alexander IMMUNIZATIONS Vaccine Route Administration Date Status Influenza (18 yrs & older) Flublok IM Intramuscular Apr 09, 2020 Administered Influenza (18 yrs & older) Flublok IM Intramuscular Apr 11, 2019 Administered Influenza (18 yrs & older) Flublok IM Intramuscular Apr 14, 2018 Administered Influenza (High Dose 65 & up) IM Intramuscular May 06, 2017 A dministered Pneumococcal Adult 0.5mL (Pneumovax 23) IM Intramuscular Apr 14, 2018 Administered TDAP 0.5mL (Boostrix) IM Intramuscular Apr 09, 2020 Administe red Pneumococcal 0.5mL (Prevnar 13) IM Intramuscular Apr 11, 2019 Administered SOCIAL HISTORY Tobacco Use: Social History Observation Description Date Details (start date - stop date) Never Smoker Sex Assigned At : Social History Observation Description Sex Assigned At Unknown Education: Question Answer Notes Level of Education: High School Audit Question Answer Notes Total Score: 1 Interpretation: Alcohol Education Drug and Alcohol Question Answer Notes Total Score: 0 Interpretation: No problems reported BMI Care Goal Follow-Up Question Answer Notes Above Normal BMI Follow-Up Dietary management educatio n, guidance, and counseling Tobacco Use: Question Answer Notes Are you a: never smoker never smoker REASON FOR REFERRAL No Information VITAL SIGNS No information MEDICATIONS Medication SIG (Take, Route, Frequency, Duration) Notes Start Da te End Date Status Vitamin C 500 MG 1 tablet Orally Once a day Active Singulair 10 mg 1 tablet in the evening Orally Once a day for 90 days Mar, Active Aspirin EC 81 MG 1 tablet Orally Once a day for 30 day(s) Active Penlac 8 % 1 application Externally Once a day Mar, 0 Active Fish Oil 1200 MG 1 capsule Orally Once a day Active Famotidine 20 MG 1 tablet at bedtime as needed Orally Onc e a day for 90 day(s) Mar, Active Albuterol Sulfate HFA 108 (90 Base) MCG/ACT 2 puffs as needed Inhalation every 6 hrs for 30 days Dec, Active Calcium 600 MG 1 tablet with meals Orally Twice a day for 30 day(s) Active Atorvastatin Calcium 20 MG 1 tablet Orally Once a day for 90 day s Dec, Active Atenolol 50 MG 1/2 tablet Orally Twice a day for 30 days 2 Jan, Active Claritin 10 mg 1 tablet Orally Once a day for 30 day(s) May, Active Ergocalciferol 65805 UNIT 1 capsule Orally Twice a month for 90 day(s) Sep, Active Irbesartan 300 MG 1 tablet Orally Once a day for 30 days 0 8 Mar, 2019 Active PROCEDURES No Information RESULTS No Results REASON FOR VISIT ergocalciferol 73850 MEDICAL (GENERAL) HISTORY Type Description Date Medical History hyperlipidemia Medical History hypertension Medical History asthma/seasonal allergies Medical History Hyperlipidemia Medical History heart murmur Medical History Aortic stenosis - mild Medical History LBBB Medical History Acid reflux Medical History Hx complex endometrial hyperplasia Medical History Hx LEEP for High grade Pap Medical History sciatic nerve pain into left leg .Had P T 2015 Medical History adenosine stress test done 0 11/19/2003, positive for adenosine inducible flushing, chest and arm discomfort (possibly but not definitely angina). EKG positive for left bundle-branch block Medical History echocardiogram done 11/16/19 04 shows ejection fraction 60%, mild aortic valve stenosis with no regurgitation. Mitral tricuspid and pulmonic valves are structurally sound and mild mitral valve regurgitation, mild tricuspid valve regurgitation Surgical History Tubal ligation 1978 Surgical History L Wrist ganglion cyst 1979 Surgical History D & C 1987 Surgical History LEEP - showed LSIL 2001 Surgical History Mole removal R arm Surgical History colposcopy 2010 Surgical History B/L cataract extraction/ lens implant Goals Section No Information Health Concerns No Information MEDICAL EQUIPMENT No Information MENTAL STATUS No Information FUNCTIONAL STATUS No Information ASSESSMENTS No Information PLAN OF TREATMENT Medication Medication Name Sig Start Date Stop Date Penlac 8 % 1 application Externally Once a day Mar, Ergocalciferol 25194 UNIT 1 capsule Orally Twice a month for 90 day(s) Sep, Famotidine 20 MG 1 tablet at bedtime as needed Orally Onc e a day for 90 day(s) Mar, Singulair 10 mg 1 tablet in the evening Orally Once a da y for 90 days Mar, Atorvastatin Calcium 20 MG 1 tablet Orally Once a day for 90 day s Dec, Next Appt Details Provider Name:Kirstie Crowley, 2020-07-19 01:00:00 PM, [address], [place], [address], Provider Name:Brandie Garnettuel, 2020-09-27 0 11:00:00 AM, [address], [address], Insurance Providers Payer Name Payer Address Payer Phone Insured Name Patient Relati onship to Insured Coverage Start Date Coverage End Date MEDICARE BLUE O [address] [id number] ELIZABET DOMÍNGUEZ self
--- OUTSIDE RECORDS SUMMARY | 2020-08-02 10:50 | CCD ---
Author Author [facility] Organization [facility] Address Unknown Phone Unavailable Care Team Providers Care Stone Lathe Operator Name Role Phone Becca Griffin Unavailable PROBLEMS Type Condition ICD9-CM Code [id number] Code Onset Dates Condition S tatus SNOMED Code Notes Problem Aortic valve disorder I35.9 Active 2367351 Problem Esophageal reflux K21.9 Active 193564160 Well controlled on current regimen of famotidine, no medication changes have been made Problem Essential hypertension I10 Active 16401138 Well controlled on current regimen of atenolol and irbesartan, no medication changes have been made Problem Controlled type 2 diabetes m ellitus without complication, without long- term current use of insulin E11.9 Active 73558654 4 She will continue therapeutic lifestyle changes Problem Mixed hyperlipidemia E78.2 Active 112145502 W ell controlled on current regimen of atorvastatin and fish oil, no medication changes have been made Problem Calculus of gallbladder without cholecystitis wi thout obstruction K80.20 Active 49704815 Problem Allergic rhinitis due to pollen J30.1 Active 05738693 Problem Asthma J45.909 Active 670665002 Well controlle d on current regimen of Ventolin and Singulair, no medication changes have been made Problem Vitamin D deficiency E55.[address] mari 50,000 units, no medication changes have been made Problem Cystocele N81.10 Active 832664228 Problem Uterine prolapse N81.4 Active 31534760 ALLERGIES Allergen (clinical drug ingredient) Drug/Non Drug Allergy do cumented on EMR Reaction Allergy Type Onset Date Status naproxen Naproxen([facility] Code:[address]-15) vomiting Drug Allergy Active amoxicillin Amoxicillin([facility] Code:[address]-57) diarrhea Drug Aller gy 07/22/2020 Active ENCOUNTERS from 1945 to 2020-07-25 Encounter Location Date Provider Diagnosis [facility] [place] [address] [place] [address] Jun, Maria C Griffin Pre- op evaluation Z01.818 and Calculus of gallbladder without cholecystitis without obstruction K80.20 IMMUNIZATIONS Vaccine Route Administration Date Status Influenza [...] REASON FOR REFERRAL No Information VITAL SIGNS Weight 149 lbs Jun, Height 60.75 in Jun, BMI 28.38 kg/m2 Jun, Heart Rate 73 /min Jun, Respiratory Rate 18 /min Jun, Temperature 98.8 degrees Fahrenheit Jun, Oximetry 94 Jun, Blood pressure systolic 120 mm Hg Jun, Blood pressure diastolic 82 mm Hg Jun, MEDICATIONS Medication SIG (Take, Route, Frequency, Duration) Notes Start Da te End Date Status Claritin 10 mg 1 tablet Orally Once a day for 30 day(s) May, Active Atenolol 50 MG 1/2 tablet Orally Twice a day for 30 days 2 9 Jan, 2017 Active Singulair 10 mg 1 tablet in the evening Orally Once a day for 90 days Mar, Active Irbesartan 300 MG 1 tablet Orally Once a day for 30 days 0 8 Mar, 2019 Active Atorvastatin Calcium 20 MG 1 tablet Orally Once a day for 90 day s Dec, Active Albuterol Sulfate HFA 108 (90 Base) MCG/ACT 2 puffs as needed Inhalation every 6 hrs for 30 days Dec, Active Calcium 600 MG 1 tablet with meals Orally Twice a day for 30 day(s) Active Ergocalciferol 77189 UNIT 1 capsule Orally Twice a month for 90 day(s) Sep, Active Vitamin C 500 MG 1 tablet Orally Once a day Active Aspirin EC 81 MG 1 tablet Orally Once a day for 30 day(s) Active Famotidine 20 MG 1 tablet at bedtime as needed Orally Onc e a day for 90 day(s) Mar, Active Penlac 8 % 1 application Externally Once a day Mar, 0 Not-Taking Fish Oil 1200 MG 1 capsule Orally Once a day Active PROCEDURES from 1945 to 2020-07-25 Procedure Date Ordered Result Body Site ELECTROCARDIOGRAM, COMPLETE EKG 2020-07-22 N/A RESULTS No Results REASON FOR VISIT needs EKG/preop for robotic lap. Dr blount under general, fax #[phone] dx: K80.20 MEDICAL (GENERAL) HISTORY Type Description Date Medical [...] No Information FUNCTIONAL STATUS No Information ASSESSMENTS Encounter Date Diagnosis Assessment Notes Treatment Notes Treatm ent Clinical Notes Jun, Pre-op evaluation (ICD-10 - Z01.818) I discussed the risks vs. benefits of surgery with the patient in generic terms. I feel that she is at average risk for perioperative complications. She knows that there is always some risk with surgery and she has to be comfortable that, for her, the benefits of surgery outweigh the risks in order to proceed. If she has further questions regarding the specifics of the proposed surgical procedure and specific risks, she should discuss them with the surgeon. I feel that the patient's acute and chronic medical conditions arefully optimized at the present time. There are no readily alterable factors that could lower the patient's perioperative risk. I have recommended the patient stop all medications as recommended by their surgeon and anesthesia. In addition I recommend taking only her Atenolol 1/2 tab the morning of surgery. Stop ASA 5 days before. EKG today NSR, LBBB, old, not changed since 2003. Jun, Calculus of gallbladder with out cholecystitis without obstruction (ICD-10 - K80.20) PLAN OF TREATMENT Treatment Notes Assessment Notes Clinical Notes Pre-op evaluation I discussed the risks vs. be nefits of surgery with the patient in generic terms. I feel that she is at average risk for perioperative complications. She knows that there is always some risk with surgery and she has to be comfortable that, for her, the benefits of surgery outweigh the risks in order to proceed. If she has further questions regarding the specifics of the proposed surgical procedure and specific risks, she should discuss them with the surgeon.I feel that the patient's acute and chronic medical conditions arefully optimized at the present time. There are no readily alterable factors that could lower the patient's perioperative risk.I have recommended the patient stop all medications as recommended by their surgeon and anesthesia. In addition I recommend taking only her Atenolol 1/2 tab the morning of surgery. Stop ASA 5 days before. EKG today NSR, LBBB, old, not changed since 2003. Next Appt Details prn Reason: Provider Name:Brandie Alexander, 2020-09-2 0 11:00:00 AM, [address], [place], [address], Insurance Providers Payer Name Payer Address Payer Phone Insured Name Patient Relati onship to Insured Coverage Start Date Coverage End Date MEDICARE BLUE O [address] [id number] ELIZABET DOMÍNGUEZ self
--- OUTSIDE RECORDS SUMMARY | 2020-08-02 10:50 | CCD ---
Author Author [facility] Organization [facility] Address Unknown Phone Unavailable Care Team Providers Care State'S Attorney Name Role Phone Brandie Alexander Unavailable PROBLEMS Type Condition ICD9-CM Code SPA06-IR Code Onset Dates Condition S tatus SNOMED Code Notes Problem Mixed hyperlipidemia E78.2 Active 705854099 W ell controlled on current regimen of atorvastatin and fish oil, no medication changes have been made Problem Aortic valve disorder I35.9 Active 0286273 Problem Esophageal reflux K21.9 Active 181194123 Well controlled on current regimen of famotidine, no medication changes have been made Problem Uterine prolapse N81.4 Active 69530146 Problem Allergic rhinitis due to pollen J30.1 Active 12204665 Problem Controlled type 2 diabetes m ellitus without complication, without long- term current use of insulin E11.9 Active 86733142 4 She will continue therapeutic lifestyle changes Problem Essential hypertension I10 Active 02119474 Well controlled on current regimen of atenolol and irbesartan, no medication changes have been made Problem Asthma J45.909 Active 411771447 Well controlle d on current regimen of Ventolin and Singulair, no medication changes have been made Problem Vitamin D deficiency E55.[address] mari 50,000 units, no medication changes have been made Problem Cystocele N81.10 Active 273374735 ALLERGIES No Known Allergies ENCOUNTERS from 1945 to 2020-06-24 Encounter Location Date Provider Diagnosis [facility] [place] [address] [place] [address] May, Adair Alexander IMMUNIZATIONS Vaccine Route Administration Date [...] day for 30 day(s) May, Active Ergocalciferol 91848 UNIT 1 capsule Orally Twice a month for 90 day(s) Sep, Active Irbesartan 300 MG 1 tablet Orally Once a day for 30 days 0 8 Mar, 2019 Active PROCEDURES No Information RESULTS No Results REASON FOR VISIT hosp follow up MEDICAL (GENERAL) HISTORY Type Description Date Medical [...] Medication Name Sig Start Date Stop Date Singulair 10 mg 1 tablet in the evening Orally Once a da y for 90 days Mar, Penlac 8 % 1 application Externally Once a day Mar, Atorvastatin Calcium 20 MG 1 tablet Orally Once a day for 90 day s Dec, Famotidine 20 MG 1 tablet at bedtime as needed Orally Onc e a day for 90 day(s) Mar, Next Appt Details Provider Name:Kirstie Crowley, 2020-07-19 01:00:00 PM, [address], [place], [address], Provider Name:Brandie Alexander, 2020-09-27 0 11:00:00 AM, [address] [place] [address], [phone], Insurance Providers Payer Name Payer Address Payer Phone Insured Name Patient Relati onship to Insured Coverage Start Date Coverage End Date MEDICARE BLUE [address] [phone] ELIZABET DOMÍNGUEZ self
--- OUTSIDE RECORDS SUMMARY | 2020-08-02 10:51 | CCD ---
Author Author [facility] Organization [facility] Address Unknown Phone Unavailable Care Team Providers Care Mechanic Welder Name Role Phone Brandie Alexander Unavailable PROBLEMS Type Condition ICD9-CM Code [id number] Code Onset Dates Condition S tatus SNOMED Code Notes Problem Mixed hyperlipidemia E78.2 Active 485655506 W ell controlled on current regimen of atorvastatin and fish oil, no medication changes have been made Problem Aortic valve disorder I35.9 Active 2798134 Problem Esophageal reflux K21.9 Active 036853449 Well controlled on current regimen of famotidine, no medication changes have been made Problem Uterine prolapse N81.4 Active 18921599 Problem Allergic rhinitis due to pollen J30.1 Active 15583399 Problem Controlled type 2 diabetes m ellitus without complication, without long- term current use of insulin E11.9 Active 28514378 4 She will continue therapeutic lifestyle changes Problem Essential hypertension I10 Active 86110658 Well controlled on current regimen of atenolol and irbesartan, no medication changes have been made Problem Asthma J45.909 Active 761648793 Well controlle d on current regimen of Ventolin and Singulair, no medication changes have been made Problem Vitamin D deficiency E55.[address] mari 50,000 units, no medication changes have been made Problem Cystocele N81.10 Active 437717841 ALLERGIES No Known Allergies ENCOUNTERS from 1945 to 2020-06-12 Encounter Location Date Provider Diagnosis [address] [place] [address] [address] May, Brandie Alexander IMMUNIZATIONS Vaccine Route Administration Date Status [...] Notes Start Da te End Date Status Atenolol 50 MG 1/2 tablet Orally Twice a day for 30 days 2 Jan, Active Penlac 8 % 1 application Externally Once a day Mar, 0 Active Atorvastatin Calcium 20 MG 1 tablet Orally Once a day for 90 day s Dec, Active Aspirin EC 81 MG 1 tablet Orally Once a day for 30 day(s) Active Fish Oil 1200 MG 1 capsule Orally Once a day Active Albuterol Sulfate HFA 108 (90 Base) MCG/ACT 2 puffs as needed Inhalation every 6 hrs for 30 days Dec, Active Vitamin C 500 MG 1 tablet Orally Once a day Active Singulair 10 mg 1 tablet in the evening Orally Once a day for 90 days Mar, Active Claritin 10 mg 1 tablet Orally Once a day for 30 day(s) May, Active Irbesartan 300 MG 1 tablet Orally Once a day for 30 days 0 8 Mar, 2019 Active Famotidine 20 MG 1 tablet at bedtime as needed Orally Onc e a day for 90 day(s) Mar, Active Ergocalciferol 99288 UNIT 1 capsule Orally Twice a month for 90 day(s) Sep, Active Calcium 600 MG 1 tablet with meals Orally Twice a day for 30 day(s) Active PROCEDURES No Information RESULTS No Results REASON FOR VISIT ER Visit [facility] 06/10; Abd Pain MEDICAL (GENERAL) HISTORY Type Description Date Medical [...] Medication Name Sig Start Date Stop Date Famotidine 20 MG 1 tablet at bedtime as needed Orally Onc e a day for 90 day(s) Mar, Penlac 8 % 1 application Externally Once a day Mar, Next Appt Details Provider Name:Brandie Alexander, 2020-04-2 0 11:00:00 AM, [address], [address], Insurance Providers Payer Name Payer Address Payer Phone Insured Name Patient Relati onship to Insured Coverage Start Date Coverage End Date MEDICARE BLUE PPO [address] [facility] [address] [facility] [id number] ELIZABET DOMÍNGUEZ
--- OUTSIDE RECORDS SUMMARY | 2020-08-02 10:51 | CCD ---
Author Author [facility] Organization [facility] Address Unknown Phone Unavailable Care Team Providers Care Automatic Paint Sprayer Operator Name Role Phone Brandie Alexander Unavailable PROBLEMS Type Condition ICD9-CM Code [id number] Code Onset Dates Condition S tatus SNOMED Code Notes Problem Mixed hyperlipidemia E78.2 Active 144048740 W ell controlled on current regimen of atorvastatin and fish oil, no medication changes have been made Problem Aortic valve disorder I35.9 Active 5768510 Problem Esophageal reflux K21.9 Active 349224406 Well controlled on current regimen of famotidine, no medication changes have been made Problem Uterine prolapse N81.4 Active 93941994 Problem Allergic rhinitis due to pollen J30.1 Active 92252220 Problem Controlled type 2 diabetes m ellitus without complication, without long- term current use of insulin E11.9 Active 38588691 4 She will continue therapeutic lifestyle changes Problem Essential hypertension I10 Active 81036764 Well controlled on current regimen of atenolol and irbesartan, no medication changes have been made Problem Asthma J45.909 Active 767021465 Well controlle d on current regimen of Ventolin and Singulair, no medication changes have been made Problem Vitamin D deficiency E55.[address] mari 50,000 units, no medication changes have been made Problem Cystocele N81.10 Active 111502235 ALLERGIES No Known Allergies ENCOUNTERS from 1945 to 2020-05-29 Encounter Location Date Provider Diagnosis [facility] [place] [address] [place] [address] May, Adair Alexander IMMUNIZATIONS Vaccine Route Administration [...] day for 90 day(s) Mar, Active Ergocalciferol 47331 UNIT 1 capsule Orally Twice a month for 90 day(s) Sep, Active Calcium 600 MG 1 tablet with meals Orally Twice a day for 30 day(s) Active PROCEDURES No Information RESULTS No Results REASON FOR VISIT famotidine MEDICAL (GENERAL) HISTORY Type Description Date Medical [...] Provider Name:Brandie Alexander, 2020-04-2 0 11:00:00 AM, [address], [address], Insurance Providers Payer Name Payer Address Payer Phone Insured Name Patient Relati onship to Insured Coverage Start Date Coverage End Date MEDICARE BLUE PPO [address] [facility] [address] [facility] [id number] ELIZABET DOMÍNGUEZ
--- OUTSIDE RECORDS SUMMARY | 2020-08-02 10:51 | CCD ---
Author Author [facility] Organization [facility] Address Unknown Phone Unavailable Care Team Providers Care Associate Justice Name Role Phone Dane Aguirre Unavailable PROBLEMS Type Condition ICD9-CM Code URW07-CE Code Onset Dates Condition S tatus SNOMED Code Notes Problem Mixed hyperlipidemia E78.2 Active 590507838 W ell controlled on current regimen of atorvastatin and fish oil, no medication changes have been made Problem Aortic valve disorder I35.9 Active 4465138 Problem Esophageal reflux K21.9 Active 927428504 Well controlled on current regimen of famotidine, no medication changes have been made Problem Uterine prolapse N81.4 Active 66707184 Problem Allergic rhinitis due to pollen J30.1 Active 97058706 Problem Controlled type 2 diabetes m ellitus without complication, without long- term current use of insulin E11.9 Active 83508199 4 She will continue therapeutic lifestyle changes Problem Essential hypertension I10 Active 21412396 Well controlled on current regimen of atenolol and irbesartan, no medication changes have been made Problem Asthma J45.909 Active 934555746 Well controlle d on current regimen of Ventolin and Singulair, no medication changes have been made Problem Vitamin D deficiency E55.[address] mari 50,000 units, no medication changes have been made Problem Cystocele N81.10 Active 446955854 ALLERGIES No Known Allergies ENCOUNTERS from 1945 to 2020-06-18 Encounter Location Date Provider Diagnosis [facility] [place] [address] [place] [address] May, Avery Aguirre IMMUNIZATIONS Vaccine Route Administration Date Status Influenza [...] day for 30 day(s) May, Active Ergocalciferol 71936 UNIT 1 capsule Orally Twice a month for 90 day(s) Sep, Active Irbesartan 300 MG 1 tablet Orally Once a day for 30 days 0 8 Mar, 2019 Active PROCEDURES No Information RESULTS No Results REASON FOR VISIT New Refill Request MEDICAL (GENERAL) HISTORY Type Description Date Medical [...] Details Provider Name:Kirstie Crowley, 2020-07-19 01:00:00 PM, [address], [place], [address], Provider Name:Brandie Alexander, 2020-09-27 0 11:00:00 AM, [address], [place], [address], Insurance Providers Payer Name Payer Address Payer Phone Insured Name Patient Relati onship to Insured Coverage Start Date Coverage End Date MEDICARE BLUE [address] [id number] ELIZABET DOMÍNGUEZ self
--- OUTSIDE RECORDS SUMMARY | 2020-08-02 10:51 | CCD ---
Author Author [facility] Organization [facility] Address Unknown Phone Unavailable Care Team Providers Care Java [id number] Technical Lead Name Role Phone Antolin HICKS DO Unavailable [phone] Antolin HICKSEW DO Unavailable [phone] Antolin HICKSEW DO Unavailable [phone] Antolin HICKSEW DO Unavailable [phone] Antolin HICKSEW DO Unavailable [phone] Antolin HICKSEW DO Unavailable [phone] Antolin HICKSEW DO Unavailable [phone] Antolin HICKSEW DO Unavailable [phone] Antolin HICKSEW DO Unavailable [phone] Antolin HICKSEW DO Unavailable [phone] Antolin HICKSEW DO Unavailable [phone] Antolin HICKSEW DO Unavailable [phone] Antolin HICKSEW DO Unavailable [phone] Antolin HICKSEW DO Unavailable [phone] Antolin HICKSEW DO Unavailable [phone] Antolin HICKSEW DO Unavailable [phone] Antolin HICKS DO Unavailable [phone] Antolin HICKS DO Unavailable [phone] Antolin HICKS DO Unavailable [phone] Antolin HICKS DO Unavailable [phone] Antolin HICKS DO Unavailable [phone] Re-disclosure Warning The records that you are about to access may contain information from federally-assisted alcohol or drug abuse programs. If such information is present, then the following federally mandated warning applies: This information has been disclosed to you from records protected by federal confidentiality rules (42 CFR part 2). The federal rules prohibit you from making any further disclosure of this information unless further disclosure is expressly permitted by the written consent of the person to whom it pertains or as otherwise permitted by 42 CFR part 2. A general authorization for the release of medical or other information is NOT sufficient for this purpose. The Federal rules restrict any use of the information to criminally investigate or prosecute any alcohol or drug abuse patient.The records that you are about to access may contain highly sensitive health information, the redisclosure of which is protected by Article 27-F of the [facility] Public Health law. If you continue you may have access to information: Regarding HIV / AIDS; Provided by facilities licensed or operated by the [facility] Office of Mental Health; or Provided by the [facility] Office for People With Developmental Disabilities. If such information is present, then the following [facility] mandated warning applies: This information has been disclosed to you from confidential records which are protected by state law. State law prohibits you from making any further disclosure of this information without the specific written consent of the person to whom it pertains, or as otherwise permitted by law. Any unauthorized further disclosure in violation of state law may result in a fine or usp sentence or both. A general authorization for the release of medical or other information is NOT sufficient authorization for further disc losure. Allergies and Adverse Reactions Type Description Substance Reaction Status Data Source(s ) Drug allergy Amoxicillin Amoxicillin diarrhea Active [facility] ([facility]) Drug allergy Naprosyn Naproxen Active [facility] (Dewayne Laughlin MD [facility]) Drug Allergy Drug Allergy NKDA MEDENT ([facility], ) Encounters Encounter Providers Location Date Indications Data Source(s ) Office Visit, Est Pt., Level 3 PC [address] [place] [address] 07/22/2020 12:00:00 AM EST eCW1 ([facility]) Unknown [address] [facility] [place] [address] 07/09/2020 12:00:00 AM EST eCW1 ([facility]) Unknown [address] [facility] [place] [address] 06/19/2020 12:00:00 AM EST eCW1 ([facility]) Unknown [address] [facility] [place] [address] 06/12/2020 12:00:00 AM EST eCW1 ([facility]) Unknown [address] [facility] [address] 06/08/2020 12:00:00 AM EST eCW1 ([facility]) Unknown [address] [facility] [place] [address] 06/08/2020 12:00:00 AM EST eCW1 ([facility]) Unknown [address] [facility] [place] [address] 05/28/2020 12:00:00 AM EST eCW1 ([facility]) Outpatient [address] [facility] [id number] 04/09/2020 12:00:00 AM EDT eCW1 ([facility]) Unknown [address] [facility] [place] [address] 03/26/2020 12:00:00 AM EDT eCW1 ([facility]) Outpatient<td ID="encounterTypeDescripti onID0">1 Year Follow-Up</td><td>Sarah Hicks DO</td><td>Johan Crystal MD [facility]</td><td>03/15/2020</td><td>11:55AM</td><td>12:34PM</td><td><content ID="encounterDiagnosisID0-0">Corneal Dystrophy Anterior</content>, <content ID="encounterDiagnosisID0-1">Dry Eye Syndrome</content>, <content ID="encounterDiagnosisID0-2">Borderline Glaucoma Open Angle with Borderline Findings Both Eyes</content>, <content ID="encounterDiagnosisID0-3">Pseudophakia</content></td> Attender: SARAH Fontanez MD [facility] 03/15/2020 11:55:00 AM EDT - 03/15/2020 12:34:00 PM EDT PseudophakiaBorderline Glaucoma Open Ang le with Borderline Findings Both EyesDry Eye SyndromeCorneal Dystrophy Anterior JESÚS (Johan Laughlin MD [facility]) Pseudophakia Borderline Glaucoma Open Angle with Bord meliton Findings Both Eyes Dry Eye Syndrome Corneal Dystrophy Anterior Unknown [address] [facility] [address] 12/14/2019 12:00:00 AM EDT eCW1 ([facility]) Unknown [address] [facility] [address] 11/30/2019 12:00:00 AM EDT eCW1 ([facility]) [facility] [address] [place] [address] 11/01/2019 12:00:00 AM EDT eCW1 ([facility]) [facility] [place] [address] [facility] [address] 10/10/2019 12:00:00 AM EDT eCW1 ([facility]) [facility] [place] [address] [facility] [address] 09/25/2019 12:00:00 AM EDT eCW1 ([facility]) [facility] [place] [address] [facility] [place] [address] 09/25/2019 12:00:00 AM EDT eCW1 ([facility]) [facility] [place] [address] [facility] [address] 07/27/2019 12:00:00 AM EST eCW1 ([facility]) [facility] [place] [address] [facility] [place] [address] 06/12/2019 12:00:00 AM EST eCW1 ([facility]) Immunizations Vaccine Date Status Description Data Source(s) Tdap 04/09/2020 11:57:00 AM EDT completed e CW1 ([facility]) Tdap 04/09/2020 11:57:00 AM EDT completed e CW1 ([facility]) Tdap 04/09/2020 11:57:00 AM EDT completed e CW1 ([facility]) Tdap 04/09/2020 11:57:00 AM EDT completed e CW1 ([facility]) Tdap 04/09/2020 11:57:00 AM EDT completed e CW1 ([facility]) Tdap 04/09/2020 11:57:00 AM EDT completed e CW1 ([facility]) Tdap 04/09/2020 11:57:00 AM EDT completed e CW1 ([facility]) Tdap 04/09/2020 11:57:00 AM EDT completed e CW1 ([facility]) influenza, recombinant, quadrIvalent,injectable, prese rvative free 04/09/2020 11:56:00 AM EDT completed eCW1 ([facility]) influenza, recombinant, quadrIvalent,injectable, prese rvative free 04/09/2020 11:56:00 AM EDT completed eCW1 ([facility]) influenza, recombinant, quadrIvalent,injectable, prese rvative free 04/09/2020 11:56:00 AM EDT completed eCW1 ([facility]) influenza, recombinant, quadrIvalent,injectable, prese rvative free 04/09/2020 11:56:00 AM EDT completed eCW1 ([facility]) influenza, recombinant, quadrIvalent,injectable, prese rvative free 04/09/2020 11:56:00 AM EDT completed eCW1 ([facility]) influenza, recombinant, quadrIvalent,injectable, prese rvative free 04/09/2020 11:56:00 AM EDT completed eCW1 ([facility]) influenza, recombinant, quadrIvalent,injectable, prese rvative free 04/09/2020 11:56:00 AM EDT completed eCW1 ([facility]) influenza, recombinant, quadrIvalent,injectable, prese rvative free 04/09/2020 11:56:00 AM EDT completed eCW1 ([facility]) Medications Medication Brand Name Start Date Product Form Dose Route Admi nistrative Instructions Pharmacy Instructions Status Indications Reaction Description Data Source(s) 1,250 mcg (50,000 unit) 07/11/2020 12:00:00 AM EST capsule 6 TAKE 1 CAPSULES BY MOUTH TWICE A MONTH TAKE 1 CAPSULES BY MOUTH TWICE A MONTH SOLD: 07/12/2020 [facility] atorvastatin 20 MG Oral Tablet ATORVASTATIN CALCIUM 06/18/2020 1 2:00:00 AM EST tablet 90 TAKE ONE TABLET BY MOUTH EVERY D AY TAKE ONE TABLET BY MOUTH EVERY DAY SOLD: 06/19/2020 [facility] montelukast 10 MG Oral Tablet MONTELUKAST SODIUM 06/15/2020 12:0 0:00 AM EST tablet 90 TAKE ONE TABLET BY MOUTH EVERY E VENING TAKE ONE TABLET BY MOUTH EVERY EVENING SOLD: 06/15/2020 [facility] 750 mg 06/14/2020 12:00:00 AM EST tablet 2 TAKE ONE TABLET BY MOUTH EVERY DAY FOR 2 DAYS TAKE ONE TABLET BY MOUTH EVERY DAY FOR 2 DAYS SOLD: 06/14/2020 [facility] 5-325 mg 06/10/2020 12:00:00 AM EST tablet 20 TAKE ONE TO TWO TABLETS BY MOUTH EVERY 4 TO 6 HOURS NEEDED FOR PAIN MAXIMUM DAILY DOSE = 12 TAKE ONE TO TWO TABLETS BY MOUTH EVERY 4 TO 6 HOURS NEEDED FOR PAIN MAXIMUM DAILY DOSE = 12 SOLD: 06/10/2020 [facility] 4 mg 06/10/2020 12:00:00 AM EST tablet 20 TAKE ONE TABLET BY MOUTH EVERY 6 HOURS TAKE ONE TABLET BY MOUTH EVERY 6 HOURS SOLD: 06/10/2020 [facility] 875-125 mg 06/10/2020 12:00:00 AM EST tablet 20 TAKE ONE TABLET BY MOUTH TWICE A DAY TAKE ONE TABLET BY MOUTH TWICE A DAY SOLD: 06/10/2020 [facility] 20 mg 05/29/2020 12:00:00 AM EST tablet 90 TAKE 1 TABLET BY MOUTH AT BEDTIME NEEDED TAKE 1 TABLET BY MOUTH AT BEDTIME NEEDED SOLD: 05/30/2020 [facility] Pen[place] 8 % UNK 04/09/2020 12:00:00 AM EDT 1.0 {application} active Penlac 8 % eCW1 ([facility]) Pen[place] 8 % UNK 04/09/2020 12:00:00 AM EDT 1.0 {application} active Pen[place] 8 % eCW1 ([facility]) Pen[place] 8 % UNK 04/09/2020 12:00:00 AM EDT 1.0 {application} active Penlac 8 % eCW1 ([facility]) Penlac 8 % UNK 04/09/2020 12:00:00 AM EDT 1.0 {application} active Penlac 8 % eCW1 ([facility]) Penlac 8 % UNK 04/09/2020 12:00:00 AM EDT 1.0 {application} suspended Penlac 8 % eCW1 ([facility]) Penlac 8 % UNK 04/09/2020 12:00:00 AM EDT 1.0 {application} active Penlac 8 % eCW1 ([facility]) Penlac 8 % UNK 04/09/2020 12:00:00 AM EDT 1.0 {application} active Penlac 8 % eCW1 ([facility]) Penlac 8 % UNK 04/09/2020 12:00:00 AM EDT 1.0 {application} active Penlac 8 % eCW1 ([facility]) Atenolol 50 MG Oral Tablet ATENOLOL 04/01/2020 12:00:00 AM EDT tablet 30 TAKE 1/2 TABLET BY MOUTH TWO TIMES A DAY TAKE 1/2 TABLET BY MOUTH TWO TIMES A DAY SOLD: 07/01/2020 [facility] 90 mcg/actuation 04/01/2020 12:00:00 AM EDT HFA aerosol inha ler 8 INHALE 2 PUFFS BY MOUTH EVERY 6 HOURS NEEDED INHALE 2 PUFFS BY MOUTH EVERY 6 HOURS NEEDED SOLD: 04/02/2020 [facility] 300 mg 04/01/2020 12:00:00 AM EDT tablet 30 TAKE ONE TABLET BY MOUTH EVERY DAY TAKE ONE TABLET BY MOUTH EVERY DAY SOLD: 05/30/2020 [facility] Atenolol 50 MG Oral Tablet ATENOLOL 04/01/2020 12:00:00 AM EDT tablet 30 TAKE 1/2 TABLET BY MOUTH TWO TIMES A DAY TAKE 1/2 TABLET BY MOUTH TWO TIMES A DAY SOLD: 04/02/2020 [facility] Atenolol 50 MG Oral Tablet ATENOLOL 04/01/2020 12:00:00 AM EDT tablet 30 TAKE 1/2 TABLET BY MOUTH TWO TIMES A DAY TAKE 1/2 TABLET BY MOUTH TWO TIMES A DAY SOLD: 05/30/2020 [facility] 300 mg 04/01/2020 12:00:00 AM EDT tablet 30 TAKE ONE TABLET BY MOUTH EVERY DAY TAKE ONE TABLET BY MOUTH EVERY DAY SOLD: 05/02/2020 [facility] 300 mg 04/01/2020 12:00:00 AM EDT tablet 30 TAKE ONE TABLET BY MOUTH EVERY DAY TAKE ONE TABLET BY MOUTH EVERY DAY SOLD: 04/02/2020 [facility] 300 mg 04/01/2020 12:00:00 AM EDT tablet 30 TAKE ONE TABLET BY MOUTH EVERY DAY TAKE ONE TABLET BY MOUTH EVERY DAY SOLD: 07/02/2020 [facility] Atenolol 50 MG Oral Tablet ATENOLOL 04/01/2020 12:00:00 AM EDT tablet 30 TAKE 1/2 TABLET BY MOUTH TWO TIMES A DAY TAKE 1/2 TABLET BY MOUTH TWO TIMES A DAY SOLD: 04/28/2020 [facility] Famotidine 40 MG Oral Tablet Famotidine 40 MG Oral Tablet 12:00:00 AM EDT 1 active famotidine 40 MG Oral Tablet JES[facility]S (Johan Laughlin MD [facility]) Atorvastatin 20 MG Oral Tablet Atorvastatin 20 MG Oral Table t 03/15/2020 12:00:00 AM EDT 1 active Atorvast atin 20 MG [facility] (Johan Laughlin MD [facility]) Vitamin D2 1.25 mg- 50,000 units Oral Capsule Vitamin D2 1.25 mg- 50,000 units Oral Capsule 03/15/2020 12:00:00 AM EDT active Vitamin D2 [facility] (Johan Laughlin MD [facility]) Calcium 600 MG Oral Tablet Calcium 600 MG Oral Tablet 2019 12:00:00 AM EDT 1 active Calcium J[facility] (Johan Laughlin MD [facility]) irbesartan 300 MG Oral Tablet Irbesartan 300 MG Oral T ablet Irbesartan 300 MG Oral Tablet 03/15/2020 12:00:00 AM EDT 1 active irbesartan 300 MG Oral Tablet J[facility] (Johan Laughlin MD [facility]) 200 ACTUAT Albuterol 0.09 MG/ACTUAT Dry Powder Inhaler Albuterol Sulfate 108 (90 Base) MCG/ACT Inhalation Aerosol Powder Breath Activated Albuterol Sulfate 108 (90 Base) MCG/ACT Inhalation Aerosol Powder Breath Activated 03/15/2020 12:00:00 AM EDT active 200 ACTU AT albuterol 0.09 MG/ACTUAT Dry Powder Inhaler JES[facility]S (Johan Laughlin MD [facility]) 100 mg 01/20/2020 12:00:00 AM EDT capsule 14 TAKE ONE CAPSULE BY MOUTH TWO TIMES A DAY TAKE ONE CAPSULE BY MOUTH TWO TIMES A DAY SOLD: 01/20/2020 [facility] montelukast 10 MG Oral Tablet MONTELUKAST SODIUM 12/16/2019 12:0 0:00 AM EDT tablet 90 TAKE 1 TABLET BY MOUTH IN THE EV ENING TAKE 1 TABLET BY MOUTH IN THE EVENING SOLD: 03/12/2020 [facility] montelukast 10 MG Oral Tablet MONTELUKAST SODIUM 12/16/2019 12:0 0:00 AM EDT tablet 90 TAKE 1 TABLET BY MOUTH IN THE EV ENING TAKE 1 TABLET BY MOUTH IN THE EVENING SOLD: 12/17/2019 [facility] atorvastatin 20 MG Oral Tablet ATORVASTATIN CALCIUM 12/16/2019 1 2:00:00 AM EDT tablet 90 TAKE ONE TABLET BY MOUTH EVERY D AY TAKE ONE TABLET BY MOUTH EVERY DAY SOLD: 03/12/2020 [facility] atorvastatin 20 MG Oral Tablet ATORVASTATIN CALCIUM 12/16/2019 1 2:00:00 AM EDT tablet 90 TAKE ONE TABLET BY MOUTH EVERY D AY TAKE ONE TABLET BY MOUTH EVERY DAY SOLD: 12/17/2019 [facility] 40 mg 12/02/2019 12:00:00 AM EDT tablet 15 TAKE ONE-HALF TABLET BY MOUTH EVERY DAY TAKE ONE-HALF TABLET BY MOUTH EVERY DAY SOLD: 03/26/2020 [facility] 40 mg 12/02/2019 12:00:00 AM EDT tablet 15 TAKE ONE-HALF TABLET BY MOUTH EVERY DAY TAKE ONE-HALF TABLET BY MOUTH EVERY DAY SOLD: 12/03/2019 [facility] 40 mg 12/02/2019 12:00:00 AM EDT tablet 15 TAKE ONE-HALF TABLET BY MOUTH EVERY DAY TAKE ONE-HALF TABLET BY MOUTH EVERY DAY SOLD: 12/30/2019 [facility] 40 mg 12/02/2019 12:00:00 AM EDT tablet 15 TAKE ONE-HALF TABLET BY MOUTH EVERY DAY TAKE ONE-HALF TABLET BY MOUTH EVERY DAY SOLD: 04/28/2020 [facility] 40 mg 12/02/2019 12:00:00 AM EDT tablet 15 TAKE ONE-HALF TABLET BY MOUTH EVERY DAY TAKE ONE-HALF TABLET BY MOUTH EVERY DAY SOLD: 01/30/2020 [facility] 40 mg 12/02/2019 12:00:00 AM EDT tablet 15 TAKE ONE-HALF TABLET BY MOUTH EVERY DAY TAKE ONE-HALF TABLET BY MOUTH EVERY DAY SOLD: 02/29/2020 [facility] Famotidine 40 MG Oral Tablet Famotidine 40 MG 12/02/2019 12:00:00 AM E DT active Famotidine 40 MG eCW1 ([facility]) Famotidine 40 MG Oral Tablet Famotidine 40 MG 12/02/2019 12:00:00 AM E DT active Famotidine 40 MG eCW1 ([facility]) Famotidine 40 MG Oral Tablet Famotidine 40 MG 12/02/2019 12:00:00 AM E DT active Famotidine 40 MG eCW1 ([facility]) 1,250 mcg (50,000 unit) 12/01/2019 12:00:00 AM EDT capsule 6 TAKE 1 CAPSULE BY MOUTH TWICE MONTHLY TAKE 1 CAPSULE BY MOUTH TWICE MONTHLY SOLD: 12/03/2019 [facility] 1,250 mcg (50,000 unit) 12/01/2019 12:00:00 AM EDT capsule 6 TAKE 1 CAPSULE BY MOUTH TWICE MONTHLY TAKE 1 CAPSULE BY MOUTH TWICE MONTHLY SOLD: 03/26/2020 [facility] Famotidine 20 MG Oral Tablet FAMOTIDINE 10/27/2019 12:00:00 AM EDT tab let 30 TAKE ONE TABLET BY MOUTH AT BEDTIME NEEDED TAKE ONE TABLET BY MOUTH AT BEDTIME NEEDED SOLD: 10/28/2019 [facility] 300 mg 10/27/2019 12:00:00 AM EDT tablet 30 TAKE ONE TABLET BY MOUTH EVERY DAY TAKE ONE TABLET BY MOUTH EVERY DAY SOLD: 10/28/2019 [facility] Famotidine 20 MG Oral Tablet FAMOTIDINE 08/25/2019 12:00:00 AM EST tab let 30 TAKE ONE TABLET BY MOUTH AT BEDTIME NEEDED TAKE ONE TABLET BY MOUTH AT BEDTIME NEEDED SOLD: 08/27/2019 [facility] Calcium-Vitamin D-Minerals 936-325PN-RSRQ Oral Tablet Chewable Calcium-Vitamin D-Minerals [id number] Oral Tablet Chewable 03/08/2018 12:00:00 AM EDT 1 aborted Calcium-Vitamin D-Mineral s JES[facility]S (Johan Laughlin MD [facility]) Ranitidine 15 MG/ML Oral Solution RaNITidine HCl 15MG/ ML Oral Syrup RaNITidine HCl 15MG/ML Oral Syrup 03/08/2018 12:00:00 AM EDT 1 aborted ranitidine 15 MG/ML Oral Solution JES[facility] (Johan Laughlin MD [facility]) montelukast 10 MG Oral Tablet [Singulair] Singulair 10 MG Oral Tablet Singulair 10MG Oral Tablet 03/08/2018 12:00:00 AM EDT 1 a borted montelukast 10 MG Oral Tablet [Singulair] [facility]ES[facility] (Johan Laughlin MD [facility]) Losartan Potassium 100 MG Oral Tablet Losartan Potassi um 100MG Oral Tablet Losartan Potassium 100MG Oral Tablet 10/16/2016 12:00:00 AM EDT 1 aborted losartan potassium 100 MG Oral T ablet [facility] (Johan Laughlin MD [facility]) atorvastatin 20 MG Oral Tablet [Lipitor] Lipitor 20MG Oral Tablet Lipitor 20MG Oral Tablet 10/16/2016 12:00:00 AM EDT 1 aborte d atorvastatin 20 MG Oral Tablet [Lipitor] [facility] (Johan Laughlin MD [facility]) Insurance Providers Payer name Policy type / Coverage type Policy ID Covered alliance party ID Covered alliance party's relationship to fang Policy Fang Plan Information MEDICARE BLUE PPO 306 [id number] SP [id number] MEDICARE BLUE PPO 306 [id number] SP [id number] [facility] B [id number] [facility] [id number] BCBS of [facility] [place] Other 0 Self 0 BCBS of [facility] [place] Other 0 Self 0 ANSI-Medicare Part B [id number] ANSI-Medicare Part B [id number] ANSI-Commercial [id number] ANSI-Commercial [id number] ANSI-Medicare Part B [id number] ANSI-Medicare Part B [id number] ANSI-Medicare Part B [id number] ANSI-Medicare Part B [id number] ANSI-Commercial [id number] ANSI-Medicare Part B [id number] ANSI-Medicare Part B [id number] ANSI-Commercial [id number] ANSI-Medicare Part B [id number] ANSI-Medicare Part B [id number] ANSI-Commercial [id number] ANSI-Medicare Part B [id number] ANSI-Medicare Part B [id number] ANSI-Commercial [id number] ANSI-Medicare Part B [id number] ANSI-Commercial [id number] ANSI-Medicare Part B [id number] ANSI-Commercial [id number] ANSI-Medicare Part B [id number] ANSI-Medicare Part B [id number] ANSI-Medicare Part B [id number] ANSI-Medicare Part B [id number] ANSI-Commercial [id number] ANSI-Commercial [id number] ANSI-Medicare Part B [id number] ANSI-Medicare Part B [id number] ANSI-Commercial [id number] ANSI-Medicare Part B [id number] ANSI-Commercial [id number] ANSI-Medicare Part B [id number] ANSI-Medicare Part B [id number] ANSI-Commercial 41j11106-6w32-6hq7-8p22-ko56fonfdn19 76q90955-4k65-2sd8-0i34-gd25qbrxcy42 ANSI-Medicare Part B 751k601b-zn31-23t9-v637-79t5484n3y17 588f205e-jt91-98p8-n129-80i7137f4d94 ANSI-Commercial lvum13t3-4378-7n78-mo4n-p11m7gp406q6 ramx05q1-2220-1w59-fh0t-l26x8eu141i9 [facility] OPTIONS [id number] SP [id number] MEDICARE [id number] SP [id number] A ANSI-Commercial f5fi0a21-5el7-5fp1-30pd-86dq30mn7084 q3op5o02-3jh3-1pk3-32ot-11et48rt3805 ANSI-Medicare Part B 11199by7-ujg9-185l-695c-2g24g1l23y35 62250eo5-icr6-239s-949f-9a75a6f29k43 ANSI-Medicare Part B 45xjd303-3h87-7kr8-mv61-48oo22mt194c 53pcd884-9f92-1lu3-vs28-77nz03xa820h ANSI-Commercial i8h683t3-sn13-72w9-7881-949ik6x8e0a7 m7m044n2-og57-80m1-6022-116fy0d8y0y3 ANSI-Medicare Part B 6i3w3ctg-74am-6u1k-27n5-8c3jxy195a7o 8z2d0keg-39vf-8m6x-65o1-1g7rgl134b0n ANSI-Commercial ggmfii80-90i9-8133-7357-93o6163k5w9t pogtcd23-38z3-4482-3443-95a9748a3w1x ANSI-Commercial 33ga31s3-15n6-7136-5lpe-434ohp1b1j64 95wz73d4-67q8-5038-6vxr-313cag5g1c69 ANSI-Medicare Part B 3185zhdy-jc2c-5659hq9t-5410-xuy9-19s0x8c644p1 2021nkdp-hp6c-0809ku3o-9748-xqd5-55m5x6x743h3 ANSI-Commercial fn6gm501-7in7-806r-s367-43y34p7ob8u7 dn9am463-8ns0-505f-w559-51v82n3xz5a6 ANSI-Medicare Part B 0d202op2-u0gz-67a0-2143-c1co21t592o1 0k664qb1-y6fh-33b5-7557-r5ut14i312l4 ANSI-Medicare Part B 69r4w80c-in87-6n3y-6h98-sij08l5j3o7z 29g4z93r-vb64-2h5o-4x71-veb60g9p3q4c ANSI-Commercial 66194930-a119-537n-1053-eq80515651j7 35061753-y345-223a-7486-lm43077969p0 ANSI-Medicare Part B cp3y85dt-8m41-9d89-8xv6-4b80ci832264 nr7t53js-5j53-0r02-6vs0-6e29qr060202 ANSI-Commercial v1pnb317-54p6-4g7r-3n8x-r079249kr229 v1ahh891-13e1-1q0n-2a3r-o261730bi258 ANSI-Commercial 2u1k5s65-lt26-4bw2-t45i-5m1mb589008s 7f1j8c66-sl85-7cv3-j23n-0b4wk105400d ANSI-Medicare Part B gi977167-ja79-9rhp-4106-52539b39q27t nl002734-lp23-9ypy-8532-97122k45u46s [facility] OPTIONS [id number] SP [id number] MEDICARE [id number] SP [id number] A AARP O [id number] S [id number] MEDICARE C [id number] S [id number] [facility] [id number] A Problems, Conditions, and Diagnoses Code Display Name Description Problem Type Effective Dates Data Source(s) K80.20 [id number] Calculus of gallblad stone without cholecystitis without obstruction Problem 07/22/2020 12:00:00 AM EST eCW1 ([facility]) [id number] Allergic asthma without status asthmatic us Allergic asthma without status asthmaticus Problem 06/18/2020 12:00:00 AM EST MEDENT ([facility], ) [id number] Essential hypertension Essential hypertension Problem 06/18/2020 12:00:00 AM EST MEDENT ([facility], ) V43.1 Pseudophakia Pseudophakia Problem 03/15/2020 12:00:00 A M EDT JESÚS (Johan Laughlin MD [facility]) Surgeries/Procedures Procedure Description Date Indications Data Source(s) ECG ROUTINE ECG W/LEAST 12 LDS W/I&R 07/22/2020 12:00: 00 AM EST eCW1 ([facility]) Immunization: Boostrix 0.5mL IM (TDAP) 04/09/2020 12:0 0:00 AM EDT eCW1 ([facility]) Immunization: Flublok Quadrivalent (18 years & older) 0.5mL IM (Influenza) 04/09/2020 12:00:00 AM EDT eCW1 ([facility]) Extracapsular extraction of lens (procedure) History o f extracapsular cataract extraction PCIOL OS 12/31/[address] Hicks ~PCIOL OD 02/04/[address] Hicks 03/15/2020 12:00:00 AM EDT JESÚS (Johan malave MD [facility]) Intermediate Eye Exam Established Patient Intermediate Eye Exam Established Patient 03/15/2020 12:00:00 AM EDT JESÚS (Steven Laughlni MD [facility]) Results ID Date Data Source [id number] 07/28/2020 10:45:00 AM EST [facility] Name Value Range Interpretation Code Description Data Malena rce(s) Supporting Document(s) SARS coronavirus 2 RNA Not Detected [facility] This lab was ordered by [facility] and reported by [facility]. Procedure Social History Code Duration Value Status Description Data Source(s ) Smoking 07/22/2020 12:00:00 AM EST Never Smoker completed Never S moker eCW1 ([facility]) Smoking 04/09/2020 12:00:00 AM EDT Never Smoker completed Never S moker eCW1 ([facility]) Smoking 04/09/2020 12:00:00 AM EDT Never Smoker completed Never S moker eCW1 ([facility]) Smoking 04/09/2020 12:00:00 AM EDT Never Smoker completed Never S moker eCW1 ([facility]) Smoking 04/09/2020 12:00:00 AM EDT Never Smoker completed Never S moker eCW1 ([facility]) Smoking 04/09/2020 12:00:00 AM EDT Never Smoker completed Never S moker eCW1 ([facility]) Smoking 04/09/2020 12:00:00 AM EDT Never Smoker completed Never S moker eCW1 ([facility]) Smoking 04/09/2020 12:00:00 AM EDT Never Smoker completed Never S moker eCW1 ([facility]) Smoking 03/15/2020 12:35:56 PM EDT Never smoked tobacco (findi ng) completed Never smoked tobacco (finding) JESÚS (Johan Laughlin MD [facility]) Vital Signs ID Date Data Source UNK Name Value Range Interpretation Code Description Data Source(s) Diastolic blood pressure 82 mm[Hg] 82 mm[Hg] eCW1 ([facility]) Systolic blood pressure 120 mm[Hg] 120 mm[Hg] e CW1 ([facility]) Body temperature 98.8 [degF] 98.8 [degF] eCW1 ( [facility]) Respiratory rate 18 /min 18 /min eCW1 ([facility]) Heart rate 73 /min 73 /min eCW1 ([facility]) Body mass index (BMI) [Ratio] 28.38 kg/m2 28.38 kg/m2 eCW1 ([facility]) Body height 60.75 [in_i] 60.75 [in_i] eCW1 ([facility]) Body weight 149 [lb_av] 149 [lb_av] eCW1 ([facility]) Body surface area Derived from formula 1.[address] [facility] ([facility]) Body weight 70.[address] [facility] ([facility] [place] body weight 110 [lb_av] 110 [lb_av] MEDEN T ([facility]) Body mass index (BMI) [Ratio] 28.2 kg/m2 28.2 k g/m2 [facility] ([facility]) Body weight 154.38 [lb_av] 154.38 [lb_av] MEDEN T ([facility]) Body height 62 [in_i] 62 [in_i] [facility] 5'2" Diastolic blood pressure 68 mm[Hg] 68 mm[Hg] MEDENT ([facility], ) Systolic blood pressure 134 mm[Hg] 134 mm[Hg] M EDENT ([facility], ) Systolic blood pressure 120 mm[Hg] 120 mm[Hg] e CW1 ([facility]) Body temperature 98 [degF] 98 [degF] eCW1 ([facility]) Respiratory rate 16 /min 16 /min eCW1 ([facility]) Heart rate 75 /min 75 /min eCW1 ([facility]) Body mass index (BMI) [Ratio] 30.29 kg/m2 30.29 kg/m2 eCW1 ([facility]) Body height 60.75 [in_i] 60.75 [in_i] eCW1 ([facility]) Body weight 159 [lb_av] 159 [lb_av] eCW1 ([facility]) Diastolic blood pressure 72 mm[Hg] 72 mm[Hg] eCW1 ([facility]) Patient Treatment Plan of Care Planned Activity Planned Date Details Description Data Source (s) [facility] 8 % 04/09/2020 12:00:00 AM EDT e CW1 ([facility]) [facility] 8 % 04/09/2020 12:00:00 AM EDT e CW1 ([facility]) [facility] 8 % 04/09/2020 12:00:00 AM EDT e CW1 ([facility]) [facility] 8 % 04/09/2020 12:00:00 AM EDT e CW1 ([facility]) [facility] 8 % 04/09/2020 12:00:00 AM EDT e CW1 ([facility]) [facility] 8 % 04/09/2020 12:00:00 AM EDT e CW1 ([facility]) [facility] 8 % 04/09/2020 12:00:00 AM EDT e CW1 ([facility]) Famotidine 40 MG Oral Tablet 12/02/2019 12:00:00 AM EDT eCW1 ([facility]) Famotidine 40 MG Oral Tablet 12/02/2019 12:00:00 AM EDT eCW1 ([facility]) Famotidine 40 MG Oral Tablet 12/02/2019 12:00:00 AM EDT eCW1 ([facility])
--- OUTSIDE RECORDS SUMMARY | 2020-08-02 10:51 | CCD | Continuity of Care Document ---
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 Name Role Phone Richardson Marmolejo AUTM Unavailable Brandie Melendez [phone] Problems Active Problems Provider Date Essential hypertension Deni Moore DO Onset: 0 Allergic asthma without status asthmaticus Deni Moore DO Onset: 06/18/2020 Social History Type Date Description Comments Sex Unknown ETOH Use 1 A Month Beer and Wine Tobacco Use Start: Unknown Denies Smoking Recreational Drug Use Denies Drug Use Allergies, Adverse Reactions, Alerts Active Allergies Reaction Severity Comments Date Naproxen Nausea 06/18/2020 Amoxicillin Diarrhea 06/18/2020 Inactive Allergies NKDA 06/18/2020 Medications Active Medications SIG Qnty Indications Ordering Provide r Date Aspirin [address] one tab by mouth once a day Unknown Atenolol 25mg Tablets 1 tab b id Unknown Atorvastatin Calcium 20mg Tablets 1 tab po qd Unknown Montelukast Sodium 10mg Tablets Take One Tablet By Mouth Every Evening Unknown Famotidine 20mg Tablets Take 1 Tablet By Mouth AT Bedtime as Needed Unknown Hydrocodone-Acetaminophen 5-325mg Tablets Richardson Marmolejo FNP Ondansetron HCL 4mg Tablets Take One Tablet By Mouth Every 6 Hours Unknown Vitamin D (Ergocalciferol) 1.25mg ([address] Ut) Capsules Take 1 Capsule By Mouth Twice Monthly Unk nown Albuterol Sulfate HFA 108(90Base) mcg/Act Aerosol Benjamin, Brandie, PA-C Irbesartan 300mg Tablets Brandie Alexander PA-C Amoxicillin/Clavulanate Potassium 875-125mg Tablets Take One Tablet By Mouth Twice A Day Unkn own Levofloxacin 750mg Tablets Unknown Calcium 600 600mg Tablets 1 tab po bid Unknown Systane 0.4-0.3% Solution 1 gtt bid both eyes Unknown Claritin 10mg Capsules 1 tab po qd Unknown Fish Oil 1200mg Capsules DR 1 tab po qd Unknown Immunizations Description No Information Available Vital Signs Date Vital Result Comment 06/18/2020 10:03am BP Systolic 134 mmHg BP Diastolic 68 mmHg Height 62 inches 5'2" Weight 154.38 lb BMI (Body Mass Index) 28.2 kg/m2 [facility] Body Weight 110 lb Weight 70.025 kg BSA (Body Surface Area) 1.71 m2 Results Description No Information Available Procedures Description No Information Available Medical Devices Description No Information Available Encounters Description No Information Available Assessments Description No Information Available Plan of Treatment No Information Available Functional Status Description No Information Available Mental Status Description No Information Available Referrals Description No Information Available
[2020-08-02] MEDS ORDERED: ROCURONIUM BROMIDE 50 MG/5 ML VIAL As Ordered ONE ×2 (12:08→14:10)
[2020-08-02] MEDS ORDERED: ONDANSETRON 4MG/2ML VIAL As Ordered ONE (12:08)
[2020-08-02] MEDS ORDERED: fentaNYL 250 MCG/5 ML INJECTION (J3010) As Ordered ONE (12:08)
[2020-08-02] MEDS ORDERED: propofoL 200 MG/20 ML VIAL As Ordered ONE (12:08)
[2020-08-02] MEDS ORDERED: dexameTHASONE 4 MG/ML 1ML VIAL (J1100 PER 1MG) As Ordered ONE (12:08)
[2020-08-02] MEDS ORDERED: LIDOCAINE 2% 100MG/5ML SDV (FOR ANES.) As Ordered ONE (12:08)
[2020-08-02] MEDS ORDERED: MIDAZOLAM INJ 2MG/2ML VIAL (J2250 PER 1MG) As Ordered ONE (12:08)
[2020-08-02] MEDS ORDERED: SUGAMMADEX SODIUM 500 MG/5 ML VIAL (BRIDION) As Ordered ONE (12:14)
[2020-08-02] MEDS ORDERED: BUPIVACAINE/EPIN 0.25% 30 ML VIAL As Ordered ONE (12:54)
[2020-08-02] MEDS ORDERED: ACETAMINOPHEN 1000MG 100ML IV BTL (OFIRMEV) (J0131 PER 10MG) As Ordered ONE (13:26)
[2020-08-02] MEDS ORDERED: VASOPRESSIN INJ 20 UNITS/ML VIAL As Ordered ONE (13:28)
[2020-08-02] MEDS ORDERED: GLYCOPYRROLATE INJ 0.2 MG/ML 2 ML VIAL As Ordered ONE (13:33)
[2020-08-02] MEDS ORDERED: METOCLOPRAMIDE INJ 10MG/2ML VIAL (J2765 PER 1) As Ordered ONE (13:38)
[2020-08-02] MEDS ORDERED: KETOROLAC 60MG 2ML VIAL As Ordered ONE (13:40)
[2020-08-02] MEDS ORDERED: PHENYLephrine 500MCG 5ML (100MCG/ML) SYRINGE As Ordered ONE (14:20)
[2020-08-02] MEDS ORDERED: ePHEDrine SULFATE 25 MG/5 ML(5MG/ML) SYRINGE As Ordered ONE (14:20)
[2020-08-02] MEDS ORDERED: LR 1,000 ML IV SCH (15:00)
[2020-08-02] MEDS ORDERED: fentaNYL 100 MCG/2 ML INJECTION (J3010) IV PRN (15:00)
[2020-08-02] MEDS ORDERED: NORCO, ANEXSIA 5/325MG TABLET (HYDROcodone/ACETAMINOPHEN) PO PRN (15:00)
[2020-08-02] MEDS ORDERED: ONDANSETRON 4MG/2ML VIAL IV PRN (15:00)
[2020-08-02] MEDS: oxyCODONE 5MG TAB PO PRN ×2 (15:02→15:35)
[2020-08-02] MEDS ORDERED: HYDROMORPHONE HCL 0.5 MG/ 0.5 ML SYRINGE (J1170 PER 1) As Ordered ONE (15:10)
[2020-08-02] MEDS: HYDROMORPHONE HCL 0.5 MG/ 0.5 ML SYRINGE (J1170 PER 1) IV PRN ×2 (15:13→15:23)
--- NOTE | 2020-08-02 15:29 | RO ---
OPERATIVE NOTE DATE OF OPERATION: 08/02/2020 PREOPERATIVE DIAGNOSIS: Acute cholecystitis. POSTOPERATIVE DIAGNOSIS: Acute cholecystitis. PROCEDURE: Robotic cholecystectomy with drain placement. SURGEON: Deni Moore DO SECOND MATE: Nellie Quintana ANESTHESIA: General. EBL: 5. COMPLICATIONS: None. INDICATIONS FOR PROCEDURE: The patient is a 74-year-old female who presents with history of acute cholecystitis identified on CT in mid May. Recommendation was to proceed with robotic cholecystectomy. Risks and benefits of the procedure not limited to but including bleeding, infection, hernia formation, damage to surrounding structures, need for further surgery was discussed in detail with the patient, informed consent was obtained and procedure was planned. DESCRIPTION OF PROCEDURE: The patient was brought back to operating room 7. After sufficient sedation the abdomen was sterilely prepped and draped. Time out was done to confirm proper patient and proper procedure. An 8 mm incision was made in left upper quadrant, Veress needle was inserted and the abdomen was insufflated to 15 mmHg. Veress needle was removed and 8 mm Optiview port was used to gain access to the abdomen. Once the abdomen was entered there was significant inflammation surrounding the gallbladder. Three more ports were able to be placed in the mid abdomen and one in the right upper quadrant. Omental and peritoneal adhesions were dissected free off the fundus of the gallbladder enough to be able to elevate it up. Dissection was carried out down to the body and around the neck of the gallbladder continuing to dissect off the stomach, the duodenum, and then the transverse colon along with more of the omentum. Once the gallbladder was completely dissected free from all of its attachments dissection was carried out around the neck of the gallbladder. Once cystic duct and cystic artery were identified they were both doubly clipped and cut. The gallbladder was then dissected free from the gallbladder fossa. Upon removal there appeared to be some small pus pockets in the posterior wall and once the gallbladder was removed all the fluid and everything in the area was aspirated out using the suction gelatin powder mixer. Gallbladder was then placed inside a 5 mm Endo Catch bag, brought out through the right lateral port site. The [place] Rudi drain was then placed in the gallbladder fossa, brought out through the right lateral port site, sutured in place to the skin with 2-0 silk suture. The abdomen was desufflated. Skin incisions were closed with 4-0 Vicryl subcuticular sutures. The abdomen was cleaned and dried; Steri-Strips, 4 x 4 and tape were applied.
[2020-08-02 18:30] VITALS: BP 115/69
== END 2020-08-02 18:49 | disposition home or self-care (01) ==
LOC: M SDC 10:45
PROVIDERS: ATTEND Surgery
DX: K81.0 Acute cholecystitis (principal); I10 Essential (primary) hypertension; E78.5 Hyperlipidemia, unspecified; K21.9 Gastro-esophageal reflux disease without esophagitis; Z79.82 Long term (current) use of aspirin; Z79.899 Other long term (current) drug therapy; Z88.0 Allergy status to penicillin; Z88.8 Allergy status to other drugs, medicaments and biological substances; J45.909 Unspecified asthma, uncomplicated
CPT/HCPCS: 47562; 88304; J0131; J1100; J1170; J1885; J2250; J2370; J2405; J2765; J3010; S2900

== ENCOUNTER → 2020-10-07 | Outpatient (REF) | payer MEDICARE ==
[~2020-10-07] MED LIST changes: -LR 1,000 ML IV ONE
[2020-10-07 13:00] LABS: HEMOGLOBIN A1c 5.4 %
[2020-10-07 13:15] LABS: ALBUMIN 3.8 GM/DL (3.2-5.2); ALT/SGPT 19 U/L (12-78); BILIRUBIN,TOTAL 0.7 MG/DL (0.2-1.0); BLOOD UREA NITROGEN 17 MG/DL (7-18); CALCIUM LEVEL 10.1 MG/DL (8.8-10.2); CARBON DIOXIDE LEVEL 33 MEQ/L (21-32); CHLORIDE LEVEL 110 MEQ/L (98-107); CHOLESTEROL LEVEL 133 MG/DL (<200); CHOLESTEROL RISK RATIO 2.891 (<5); CREATININE FOR GFR 0.94 MG/DL (0.55-1.30); GLOMERULAR FILTRATION RATE > 60.0 (>39); GLUCOSE, FASTING 114 MG/DL (70-100); HDL CHOLESTEROL 46 MG/DL (>40); LDL CHOLESTEROL 61 MG/DL (<100); NON-HDL-C 87 MG/DL; POTASSIUM SERUM 4.2 MEQ/L (3.5-5.1); SODIUM LEVEL 145 MEQ/L (136-145); TOTAL PROTEIN 6.8 GM/DL (6.4-8.2); TRIGLYCERIDES LEVEL 128 MG/DL (<150)
== END ==
LOC: M SFHCADAM 08:46
PROVIDERS: ATTEND Physician Assistant
DX: E78.2 Mixed hyperlipidemia (principal); I10 Essential (primary) hypertension; E11.9 Type 2 diabetes mellitus without complications

== ENCOUNTER → 2021-04-01 | Outpatient (CLI) | payer MEDICARE ==
[~2021-04-01] MED LIST changes: +ERGO500029 PO; -VITA50005 PO
--- NOTE | 2021-04-01 14:09 | REPMRS ---
Patient History The patient states she had a clinical breast exam in 2020. No known family history of cancer. Took hormonal contraceptives for 2 years. Took estrogen for 3 months. Took progesterone for 3 months. No breast complaints today Patient signed the MRS sheet 1st covid vaccine 09/01/20-right arm-Moderna 2nd covid vaccine 09/30/20-right arm Priors on PACS Patient Identification Verified Digital Woman Screen Mammo: April 01, 2021 - Exam #: [id number] Bilateral CC and MLO view(s) were taken. Technologist: Albina Freeman, Technologist Prior study comparison: March 25, 2020, bilateral digital woman screen mammo performed at [facility]. October 06, 2018, bilateral digital woman screen mammo performed at [facility]. October 05, 2017, digital woman screen mammo performed at [facility]. FINDINGS: The breast tissue is almost entirely fat. The Volpara volumetric breast density category is: A. There has been no change in the appearance of the mammogram from the prior studies. There is no interval development of dominant mass, architectural distortion, or grouped microcalcification typical of malignancy. 3-D tomosynthesis shows no additional findings. Assessment: BI-RADS/ACR category 1 mammogram. Negative Mammogram. Recommendation Routine screening mammogram of both breasts in 1 year (for women over age 40). This patient's [facility] Lifetime Breast Cancer RIsk is estimated at 3.1 %. This mammogram was interpreted with the aid of an FDA-approved computer-aided dectection system. Electronically Signed By: Cyril Myrick MD 04/01/21 [id number]
== END ==
LOC: M WHC 12:54
PROVIDERS: ATTEND Nurse Practitioner Women's Health
DX: Z12.31 Encounter for screening mammogram for malignant neoplasm of breast (principal); Z92.0 Personal history of contraception; Z92.23 Personal history of estrogen therapy; Z92.29 Personal history of other drug therapy

== ENCOUNTER → 2021-04-07 | Outpatient (REF) | payer MEDICARE ==
[2021-04-07 14:21] LABS: ALBUMIN 3.8 GM/DL (3.2-5.2); BILIRUBIN,TOTAL 0.9 MG/DL (0.2-1.0); CALCIUM LEVEL 9.8 MG/DL (8.8-10.2); CHOLESTEROL RISK RATIO 2.58 (<5); CREATININE FOR GFR 1.17 MG/DL (0.55-1.30); POTASSIUM SERUM 4.6 MEQ/L (3.5-5.1)
[2021-04-07 15:38] LABS: HEMOGLOBIN A1c 5.6 %
== END ==
LOC: M SFHCADAM 09:25
PROVIDERS: ATTEND Physician Assistant
DX: I10 Essential (primary) hypertension (principal); E78.2 Mixed hyperlipidemia; E11.9 Type 2 diabetes mellitus without complications

== ENCOUNTER → 2021-05-06 | Outpatient (REF) | payer MEDICARE ==
[2021-05-06 13:49] LABS: BLOOD UREA NITROGEN 18 MG/DL (7-18); CALCIUM LEVEL 9.7 MG/DL (8.8-10.2); CARBON DIOXIDE LEVEL 32 MEQ/L (21-32); CHLORIDE LEVEL 108 MEQ/L (98-107); CREATININE FOR GFR 0.91 MG/DL (0.55-1.30); GLOMERULAR FILTRATION RATE > 60.0 (>39); GLUCOSE, FASTING 128 MG/DL (70-100); POTASSIUM SERUM 4.1 MEQ/L (3.5-5.1); SODIUM LEVEL 144 MEQ/L (136-145)
== END ==
LOC: M SFHCADAM 10:57
PROVIDERS: ATTEND Physician Assistant
DX: N28.9 Disorder of kidney and ureter, unspecified (principal); I10 Essential (primary) hypertension; E78.2 Mixed hyperlipidemia; E11.9 Type 2 diabetes mellitus without complications; E55.9 Vitamin D deficiency, unspecified

== ENCOUNTER → 2021-08-05 | Outpatient (REF) | payer MEDICARE ==
[~2021-08-05] MED LIST changes: +LOSA100T45 PO; -LOSA100T50 PO; -MONT10TA10 PO; +MONT10TA97 PO
[2021-08-05 16:37] LABS: APPEARANCE, URINE CLEAR (CLEAR); BACTERIA, URINE AUTO 3+ (NEGATIVE); BILIRUBIN, URINE AUTO NEGATIVE (NEGATIVE); BLOOD, URINE BLOOD 3+ (NEGATIVE); COLOR, URINE YELLOW (YELLOW); GLUCOSE, URINE (UA) AUTO NEGATIVE (NEGATIVE); KETONE, URINE AUTO NEGATIVE (NEGATIVE); LEUKOCYTE ESTERASE, URINE AUTO TRACE (NEGATIVE); MUCUS, URINE SMALL (NEGATIVE); NITRITE, URINE AUTO NEGATIVE (NEGATIVE); PROTEIN, URINE AUTO NEGATIVE (NEGATIVE); RBC, URINE AUTO 55 /HPF (0-3); SPECIFIC GRAVITY URINE AUTO 1.004 (1.002-1.035); SQUAMOUS EPITHELIAL CELL UR AU 1 /HPF (0-6); UROBILINOGEN, URINE AUTO 0.2 mg/dL (0.0-2.0); WBC, URINE AUTO 3 /HPF (0-3)
== END ==
LOC: M SFHCADAM 16:10
PROVIDERS: ATTEND Physician Assistant
DX: R30.0 Dysuria (principal)

== ENCOUNTER → 2021-10-13 | Outpatient (REF) | payer MEDICARE ==
[2021-10-13 13:59] LABS: ALBUMIN 3.9 GM/DL (3.2-5.2); BILIRUBIN,TOTAL 0.7 MG/DL (0.2-1.0); CALCIUM LEVEL 9.9 MG/DL (8.8-10.2); CHOLESTEROL RISK RATIO 3.173 (<5); CREATININE FOR GFR 1.05 MG/DL (0.55-1.30); GLOMERULAR FILTRATION RATE 54.2 (>39); POTASSIUM SERUM 4.7 MEQ/L (3.5-5.1); TOTAL PROTEIN 6.9 GM/DL (6.4-8.2)
[2021-10-13 14:36] LABS: HEMOGLOBIN A1c 5.6 %
== END ==
LOC: M SFHCADAM 12:50
PROVIDERS: ATTEND Physician Assistant
DX: I10 Essential (primary) hypertension (principal); E78.2 Mixed hyperlipidemia; E11.9 Type 2 diabetes mellitus without complications; E55.9 Vitamin D deficiency, unspecified; Z79.899 Other long term (current) drug therapy

== ENCOUNTER → 2022-04-15 | Outpatient (REF) | payer MEDICARE ==
[2022-04-15 14:19] LABS: BASO % 0.5 % (0.0-1.0); EOS # 0.2 10^3/uL (0.0-0.5); HEMATOCRIT 44.5 % (36.0-47.0); HEMOGLOBIN 14.1 g/dl (12.0-15.5); LYMPH % 17.2 % (24.0-44.0); MEAN CORPUSCULAR HEMOGLOBIN 29.4 pg (27.0-33.0); MEAN CORPUSCULAR HGB CONC 31.7 g/dl (32.0-36.5); MEAN CORPUSCULAR VOLUME 92.7 fl (80.0-96.0); MONO # 0.5 10^3/uL (0.0-0.8); MONO % 8.1 % (2.0-8.0); NEUTROPHILS # 4.2 10^3/uL (1.5-8.5); PLATELET COUNT, AUTOMATED 158 10^3/uL (150-450); WHITE BLOOD COUNT 5.9 10^3/uL (4.0-10.0)
[2022-04-15 14:40] LABS: HEMOGLOBIN A1c 5.9 %
[2022-04-15 15:01] LABS: ALBUMIN 3.8 GM/DL (3.2-5.2); BILIRUBIN,TOTAL 0.6 MG/DL (0.2-1.0); CALCIUM LEVEL 9.9 MG/DL (8.8-10.2); CHOLESTEROL RISK RATIO 3.186 (<5); CREATININE FOR GFR 0.98 MG/DL (0.55-1.30); GLOMERULAR FILTRATION RATE 58.7 (>39); POTASSIUM SERUM 4.4 MEQ/L (3.5-5.1); THYROID STIMULATING HORMONE 3.51 uIU/ML (0.358-3.740); TOTAL PROTEIN 6.8 GM/DL (6.4-8.2)
== END ==
LOC: M SFHCADAM 08:36
PROVIDERS: ATTEND Physician Assistant Medical
DX: I10 Essential (primary) hypertension (principal); E78.2 Mixed hyperlipidemia; E11.9 Type 2 diabetes mellitus without complications; K21.9 Gastro-esophageal reflux disease without esophagitis; E55.9 Vitamin D deficiency, unspecified; Z79.899 Other long term (current) drug therapy

== ENCOUNTER → 2022-05-13 | Outpatient (CLI) | payer MEDICARE | LOC: M CARPUL 08:22 | PROVIDERS: ATTEND Physician Assistant Medical | DX: R01.1 Cardiac murmur, unspecified (principal) ==

== ENCOUNTER → 2022-10-21 | Outpatient (CLI) | payer MEDICARE | LOC: M WHC 13:39 | PROVIDERS: ATTEND Nurse Practitioner Family | DX: Z12.31 Encounter for screening mammogram for malignant neoplasm of breast (principal) ==

== ENCOUNTER → 2023-04-06 | Outpatient (CLI) | payer MEDICARE ==
[~2023-04-06] MED LIST changes: -LOSA100T45 PO; +LOSA100T46 PO
== END ==
LOC: M ADAMS 14:02
PROVIDERS: ATTEND Physician Assistant Medical
DX: M54.50 Low back pain, unspecified (principal); R20.0 Anesthesia of skin

== ENCOUNTER → 2023-04-12 | Outpatient (REF) | payer MEDICARE ==
[2023-04-12 14:10] LABS: CREATININE, URINE 101.1 MG/DL; MAU/CREAT RATIO 12.8 MCG/MG (0.0-30.0)
[2023-04-12 15:09] LABS: ALBUMIN 3.7 G/DL (3.2-5.2); ALKALINE PHOSPHATASE 78 U/L (46-116); ALT/SGPT 18 U/L (7.0-40); AST/SGOT 19 U/L (<34); BILIRUBIN,TOTAL 0.9 MG/DL (0.3-1.2); BLOOD UREA NITROGEN 20 MG/DL (9-23); CALCIUM LEVEL 9.7 MG/DL (8.3-10.6); CARBON DIOXIDE LEVEL 29 MMOL/L (20-31); CHLORIDE LEVEL 106 MMOL/L (98-107); CHOLESTEROL LEVEL 136 MG/DL (<200); CHOLESTEROL RISK RATIO 3.62 (<5); CREATININE FOR GFR 0.93 MG/DL (0.55-1.30); GLOMERULAR FILTRATION RATE > 60.0 (>39); GLUCOSE, FASTING 137 MG/DL (74-106); HDL CHOLESTEROL 37.5 MG/DL (>40); LDL CHOLESTEROL 63.7 MG/DL (<100); NON-HDL-C 98.5 MG/DL; POTASSIUM SERUM 4.2 MMOL/L (3.5-5.1); SODIUM LEVEL 141 MMOL/L (136-145); THYROID STIMULATING HORMONE 10.165 uIU/ML (0.55-4.78); TOTAL PROTEIN 6.6 G/DL (5.7-8.2); TRIGLYCERIDES LEVEL 174 MG/DL (<150)
[2023-04-12 15:24] LABS: HEMOGLOBIN A1c 5.8 % (4.0-6.0)
== END ==
LOC: M SFHCADAM 08:25
PROVIDERS: ATTEND Physician Assistant Medical
DX: E78.2 Mixed hyperlipidemia (principal); E11.9 Type 2 diabetes mellitus without complications; K21.9 Gastro-esophageal reflux disease without esophagitis; E55.9 Vitamin D deficiency, unspecified; Z79.899 Other long term (current) drug therapy

== ENCOUNTER 2023-05-07 15:45 | Emergency (ER) | payer MEDICARE ==
[~2023-05-07] VITALS: Ht 157.5 cm; Wt 68.6 kg
[2023-05-07] MEDS: IPRATROPIUM 0.5MG/ALBUTEROL 2.5MG INH SOL UD 3ML (DUONEB) NEB SCH ×3 (17:53→19:12)
[2023-05-07 18:29] LABS: BASO % 0.4 % (0.0-1.0); EOS # 0.2 10^3/uL (0.0-0.5); HEMATOCRIT 42.1 % (36.0-47.0); HEMOGLOBIN 13.5 g/dl (12.0-15.5); LYMPH # 0.4 10^3/uL (1.5-5.0); LYMPH % 4.9 % (24.0-44.0); MEAN CORPUSCULAR HEMOGLOBIN 29.9 pg (27.0-33.0); MEAN CORPUSCULAR HGB CONC 32.1 g/dl (32.0-36.5); MEAN CORPUSCULAR VOLUME 93.3 fl (80.0-96.0); MONO # 0.5 10^3/uL (0.0-0.8); MONO % 6.5 % (2.0-8.0); NEUTROPHILS # 6.8 10^3/uL (1.5-8.5); NEUTROPHILS % 84.9 % (36.0-66.0); PLATELET COUNT, AUTOMATED 121 10^3/uL (150-450); RED BLOOD COUNT 4.51 10^6/uL (4.00-5.40)
[2023-05-07 18:50] LABS: BLOOD UREA NITROGEN 16 MG/DL (9-23); CALCIUM LEVEL 9.6 MG/DL (8.3-10.6); CARBON DIOXIDE LEVEL 29 MMOL/L (20-31); CHLORIDE LEVEL 107 MMOL/L (98-107); CREATININE FOR GFR 0.85 MG/DL (0.55-1.30); GLOMERULAR FILTRATION RATE > 60.0 (>39); GLUCOSE, FASTING 110 MG/DL (74-106); POTASSIUM SERUM 4.2 MMOL/L (3.5-5.1); SODIUM LEVEL 143 MMOL/L (136-145)
[2023-05-07] MEDS ORDERED: dexAMETHasone 20MG/5ML VIAL IV ONE (19:05)
[2023-05-07] MEDS ORDERED: PRED20TA PO (20:25)
[2023-05-07 21:00] VITALS: BP 127/81
[2023-05-07 21:01] VITALS: TEMP 98.9; O2SAT 96
== END 2023-05-07 21:14 | disposition home or self-care (01) ==
LOC: M ED 15:45
DX: J45.901 Unspecified asthma with (acute) exacerbation (principal); B34.8 Other viral infections of unspecified site; I44.4 Left anterior fascicular block; I44.7 Left bundle-branch block, unspecified; E11.9 Type 2 diabetes mellitus without complications; I10 Essential (primary) hypertension; E78.5 Hyperlipidemia, unspecified; K21.9 Gastro-esophageal reflux disease without esophagitis; F10.10 Alcohol abuse, uncomplicated; Z88.1 Allergy status to other antibiotic agents; Z88.6 Allergy status to analgesic agent; Z79.52 Long term (current) use of systemic steroids; Z79.02 Long term (current) use of antithrombotics/antiplatelets; Z79.899 Other long term (current) drug therapy
CPT/HCPCS: 71045; 80048; 83605; 83880; 84484; 85025; 87040; 87486; 87581; 87633; 87798; 93005; 93041; 94640; 94760; 96374; 99285; J1100

== ENCOUNTER → 2023-05-31 | Outpatient (REF) | payer MEDICARE ==
[~2023-05-31] MED LIST changes: +PRED20TA PO
[2023-05-31 15:02] LABS: FREE T4 1.07 NG/DL (0.89-1.76)
== END ==
LOC: M SFHCADAM 08:34
PROVIDERS: ATTEND Physician Assistant Medical
DX: R79.89 Other specified abnormal findings of blood chemistry (principal); E07.9 Disorder of thyroid, unspecified

== ENCOUNTER → 2023-07-13 | Outpatient (REF) | payer MEDICARE ==
[~2023-07-13] MED LIST changes: +ATEN50TA2 PO; +BLOOKIT XX; +CEFD1CAP9 PO; +D 1010004 PO; +LEVO50TA5 PO
[2023-07-13 13:33] LABS: BASO % 0.6 % (0.0-1.0); EOS # 0.3 10^3/uL (0.0-0.5); EOS % 4.8 % (0.0-3.0); HEMATOCRIT 39.8 % (36.0-47.0); HEMOGLOBIN 12.7 g/dl (12.0-15.5); LYMPH # 0.8 10^3/uL (1.5-5.0); LYMPH % 12.2 % (24.0-44.0); MEAN CORPUSCULAR HEMOGLOBIN 29.8 pg (27.0-33.0); MEAN CORPUSCULAR HGB CONC 31.9 g/dl (32.0-36.5); MEAN CORPUSCULAR VOLUME 93.4 fl (80.0-96.0); MONO # 0.5 10^3/uL (0.0-0.8); MONO % 7.1 % (2.0-8.0); NEUTROPHILS % 74.8 % (36.0-66.0); PLATELET COUNT, AUTOMATED 213 10^3/uL (150-450); RED BLOOD COUNT 4.26 10^6/uL (4.00-5.40); WHITE BLOOD COUNT 6.7 10^3/uL (4.0-10.0)
[2023-07-13 14:00] LABS: ALBUMIN 3.3 G/DL (3.2-5.2); ALKALINE PHOSPHATASE 70 U/L (46-116); ALT/SGPT 23 U/L (7.0-40); AST/SGOT 17 U/L (<34); BILIRUBIN,TOTAL 0.7 MG/DL (0.3-1.2); BLOOD UREA NITROGEN 9 MG/DL (9-23); CALCIUM LEVEL 9.3 MG/DL (8.3-10.6); CARBON DIOXIDE LEVEL 31 MMOL/L (20-31); CHLORIDE LEVEL 107 MMOL/L (98-107); CREATININE FOR GFR 0.94 MG/DL (0.55-1.30); GLOMERULAR FILTRATION RATE > 60.0 (>39); GLUCOSE, FASTING 108 MG/DL (74-106); POTASSIUM SERUM 3.6 MMOL/L (3.5-5.1); SODIUM LEVEL 145 MMOL/L (136-145); THYROID STIMULATING HORMONE 3.688 uIU/ML (0.55-4.78); TOTAL PROTEIN 6.2 G/DL (5.7-8.2)
[2023-07-13 14:01] LABS: FREE T4 1.41 NG/DL (0.89-1.76)
== END ==
LOC: M SFHCADAM 11:35
PROVIDERS: ATTEND Physician Assistant Medical
DX: E03.9 Hypothyroidism, unspecified (principal); N20.1 Calculus of ureter

== ENCOUNTER → 2023-08-10 | Outpatient (REF) | payer MEDICARE ==
[~2023-08-10] MED LIST changes: +IRBE300T25 PO; -IRBE300T7 PO
[2023-08-10 16:06] LABS: HEMOGLOBIN 13.9 g/dl (12.0-15.5); MEAN CORPUSCULAR HEMOGLOBIN 29.5 pg (27.0-33.0); MEAN CORPUSCULAR HGB CONC 31.6 g/dl (32.0-36.5); MEAN CORPUSCULAR VOLUME 93.4 fl (80.0-96.0); PLATELET COUNT, AUTOMATED 200 10^3/uL (150-450); RED BLOOD COUNT 4.71 10^6/uL (4.00-5.40); WHITE BLOOD COUNT 8.2 10^3/uL (4.0-10.0)
[2023-08-10 16:15] LABS: ALKALINE PHOSPHATASE 91 U/L (46-116); ALT/SGPT 18 U/L (7.0-40); AST/SGOT 15 U/L (<34); BILIRUBIN,TOTAL 0.6 MG/DL (0.3-1.2); BLOOD UREA NITROGEN 16 MG/DL (9-23); CALCIUM LEVEL 10.1 MG/DL (8.3-10.6); CARBON DIOXIDE LEVEL 30 MMOL/L (20-31); CHLORIDE LEVEL 103 MMOL/L (98-107); CREATININE FOR GFR 0.85 MG/DL (0.55-1.30); GLOMERULAR FILTRATION RATE > 60.0 (>39); GLUCOSE, FASTING 146 MG/DL (74-106); POTASSIUM SERUM 3.9 MMOL/L (3.5-5.1); SODIUM LEVEL 139 MMOL/L (136-145); TOTAL PROTEIN 6.8 G/DL (5.7-8.2)
== END ==
LOC: M SFHCADAM 13:57
PROVIDERS: ATTEND Urology
DX: N20.1 Calculus of ureter (principal)

== ENCOUNTER → 2023-08-10 | Outpatient (CLI) | payer MEDICARE | LOC: M ADAMS 14:01 | PROVIDERS: ATTEND Urology | DX: N20.1 Calculus of ureter (principal) ==

== ENCOUNTER 2023-08-19 07:17 | Day surgery (SDC) | payer MEDICARE ==
[~2023-08-19] VITALS: Ht 157.5 cm; Wt 65.3 kg
[~2023-08-19 07:17] MED LIST changes: -ONDA-83 PO
[2023-08-19] MEDS ORDERED: LR 1,000 ML IV SCH (07:30)
[2023-08-19] MEDS ORDERED: ONDANSETRON 4MG 2ML VIAL As Ordered ONE (08:41)
[2023-08-19] MEDS ORDERED: LIDOCAINE 2% 100MG/5ML SDV (FOR ANES.) As Ordered ONE (08:41)
[2023-08-19] MEDS ORDERED: propofoL 200 MG/20 ML VIAL As Ordered ONE (08:41)
[2023-08-19] MEDS ORDERED: PHENYLephrine 500MCG 5ML (100MCG/ML) SYRINGE As Ordered ONE (08:41)
[2023-08-19] MEDS ORDERED: ePHEDrine SULFATE 25 MG/5 ML(5MG/ML) SYRINGE As Ordered ONE (08:41)
[2023-08-19] MEDS: ceFAZolin SOD 2 GM in IV 1 EA IV ONE (09:08)
[2023-08-19] MEDS ORDERED: ONDA-83 PO (09:31)
[2023-08-19 09:40] VITALS: BP 114/56; TEMP 97.2; O2SAT 99
== END 2023-08-19 10:30 | disposition home or self-care (01) ==
LOC: M SDC 07:17
PROVIDERS: ATTEND Urology
DX: N20.1 Calculus of ureter (principal); I10 Essential (primary) hypertension; I44.7 Left bundle-branch block, unspecified; I35.0 Nonrheumatic aortic (valve) stenosis; E03.9 Hypothyroidism, unspecified; E78.00 Pure hypercholesterolemia, unspecified; J45.909 Unspecified asthma, uncomplicated; Z79.890 Hormone replacement therapy; Z79.82 Long term (current) use of aspirin; Z79.899 Other long term (current) drug therapy; Z88.0 Allergy status to penicillin; Z88.6 Allergy status to analgesic agent
CPT/HCPCS: 50590; J0690; J2371; J2405

== ENCOUNTER → 2023-08-19 | Outpatient (CLI) | payer MEDICARE ==
[~2023-08-19] MED LIST changes: +BACTDSTA PO; +IRBE75TA11 PO; +ONDA-83 PO
== END ==
LOC: M RAD 06:46 → M LAB 06:46
PROVIDERS: ATTEND Urology
DX: Z01.818 Encounter for other preprocedural examination (principal); N20.1 Calculus of ureter; Z96.0 Presence of urogenital implants

== ENCOUNTER → 2023-09-08 | Outpatient (REF) | payer MEDICARE ==
[~2023-09-08] MED LIST changes: +ONDA-83 PO
== END ==
LOC: M SMT 15:28
PROVIDERS: ATTEND Urology
DX: Z96.0 Presence of urogenital implants (principal)

== ENCOUNTER → 2023-10-12 | Outpatient (REF) | payer MEDICARE ==
[2023-10-12 14:45] LABS: BASO % 0.7 % (0.0-1.0); EOS # 0.3 10^3/uL (0.0-0.5); EOS % 4.1 % (0.0-3.0); HEMATOCRIT 44.3 % (36.0-47.0); HEMOGLOBIN 13.9 g/dl (12.0-15.5); LYMPH # 0.9 10^3/uL (1.5-5.0); LYMPH % 15.2 % (24.0-44.0); MEAN CORPUSCULAR HEMOGLOBIN 29.4 pg (27.0-33.0); MEAN CORPUSCULAR HGB CONC 31.4 g/dl (32.0-36.5); MEAN CORPUSCULAR VOLUME 93.9 fl (80.0-96.0); MONO # 0.5 10^3/uL (0.0-0.8); MONO % 8.7 % (2.0-8.0); NEUTROPHILS # 4.3 10^3/uL (1.5-8.5); PLATELET COUNT, AUTOMATED 159 10^3/uL (150-450); RED BLOOD COUNT 4.72 10^6/uL (4.00-5.40); WHITE BLOOD COUNT 6.1 10^3/uL (4.0-10.0)
[2023-10-12 14:50] LABS: HEMOGLOBIN A1c 5.5 % (4.0-6.0)
[2023-10-12 15:03] LABS: THYROID STIMULATING HORMONE 1.663 uIU/ML (0.55-4.78)
[2023-10-12 15:06] LABS: ALBUMIN 3.4 G/DL (3.2-5.2); ALKALINE PHOSPHATASE 86 U/L (46-116); ALT/SGPT 18 U/L (7.0-40); AST/SGOT 22 U/L (<34); BILIRUBIN,TOTAL 1.1 MG/DL (0.3-1.2); BLOOD UREA NITROGEN 19 MG/DL (9-23); CALCIUM LEVEL 9.7 MG/DL (8.3-10.6); CARBON DIOXIDE LEVEL 29 MMOL/L (20-31); CHLORIDE LEVEL 107 MMOL/L (98-107); CHOLESTEROL LEVEL 125 MG/DL (<200); CHOLESTEROL RISK RATIO 2.54 (<5); GLOMERULAR FILTRATION RATE > 60.0 (>39); GLUCOSE, FASTING 145 MG/DL (74-106); HDL CHOLESTEROL 49.2 MG/DL (>40); LDL CHOLESTEROL 48.8 MG/DL (<100); NON-HDL-C 75.8 MG/DL; POTASSIUM SERUM 4.3 MMOL/L (3.5-5.1); SODIUM LEVEL 143 MMOL/L (136-145); TOTAL PROTEIN 6.4 G/DL (5.7-8.2); TRIGLYCERIDES LEVEL 135 MG/DL (<150)
== END ==
LOC: M SFHCADAM 07:55
PROVIDERS: ATTEND Physician Assistant Medical
DX: I10 Essential (primary) hypertension (principal); E78.2 Mixed hyperlipidemia; E11.9 Type 2 diabetes mellitus without complications

== ENCOUNTER → 2023-12-14 | Outpatient (REF) | payer MEDICARE ==
[2023-12-14 13:46] LABS: HEMATOCRIT 43.1 % (36.0-47.0); HEMOGLOBIN 13.8 g/dl (12.0-15.5); MEAN CORPUSCULAR VOLUME 90.5 fl (80.0-96.0); PLATELET COUNT, AUTOMATED 161 10^3/uL (150-450); RED BLOOD COUNT 4.76 10^6/uL (4.00-5.40); WHITE BLOOD COUNT 5.2 10^3/uL (4.0-10.0)
== END ==
LOC: M SFHCADAM 10:44
PROVIDERS: ATTEND Physician Assistant Medical
DX: M79.672 Pain in left foot (principal); M25.572 Pain in left ankle and joints of left foot

== ENCOUNTER → 2023-12-14 | Outpatient (CLI) | payer MEDICARE | LOC: M ADAMS 10:50 | PROVIDERS: ATTEND Physician Assistant Medical | DX: M79.672 Pain in left foot (principal); M25.572 Pain in left ankle and joints of left foot ==

== ENCOUNTER → 2024-03-28 | Outpatient (REF) | payer MEDICARE ==
[2024-03-28 13:32] LABS: ALBUMIN 3.7 G/DL (3.2-5.2); BILIRUBIN,TOTAL 0.6 MG/DL (0.3-1.2); CHOLESTEROL RISK RATIO 3.3 (<5); CREATININE FOR GFR 0.99 MG/DL (0.55-1.30); GLOMERULAR FILTRATION RATE 57.8 (>39); HDL CHOLESTEROL 39.3 MG/DL (>40); LDL CHOLESTEROL 72.7 MG/DL (<100); NON-HDL-C 90.7 MG/DL; POTASSIUM SERUM 4.3 MMOL/L (3.5-5.1); TOTAL PROTEIN 6.6 G/DL (5.7-8.2)
[2024-03-28 13:35] LABS: BASO % 0.8 % (0.0-1.0); EOS # 0.3 10^3/uL (0.0-0.5); EOS % 6.3 % (0.0-3.0); HEMATOCRIT 43.9 % (36.0-47.0); HEMOGLOBIN 13.8 g/dl (12.0-15.5); LYMPH # 0.9 10^3/uL (1.5-5.0); LYMPH % 17.7 % (24.0-44.0); MEAN CORPUSCULAR HGB CONC 31.4 g/dl (32.0-36.5); MEAN CORPUSCULAR VOLUME 92.2 fl (80.0-96.0); MONO # 0.4 10^3/uL (0.0-0.8); MONO % 7.7 % (2.0-8.0); NEUTROPHILS # 3.3 10^3/uL (1.5-8.5); NEUTROPHILS % 67.3 % (36.0-66.0); PLATELET COUNT, AUTOMATED 145 10^3/uL (150-450); RED BLOOD COUNT 4.76 10^6/uL (4.00-5.40); WHITE BLOOD COUNT 4.9 10^3/uL (4.0-10.0)
[2024-03-28 13:36] LABS: THYROID STIMULATING HORMONE 1.681 uIU/ML (0.55-4.78)
[2024-03-28 13:51] LABS: HEMOGLOBIN A1c 5.7 % (4.0-6.0)
== END ==
LOC: M SFHCADAM 08:59
PROVIDERS: ATTEND Physician Assistant Medical
DX: E11.9 Type 2 diabetes mellitus without complications (principal); E03.9 Hypothyroidism, unspecified; E78.2 Mixed hyperlipidemia; E55.9 Vitamin D deficiency, unspecified

== ENCOUNTER → 2024-07-04 | Outpatient (CLI) | payer MEDICARE ==
[~2024-07-04] MED LIST changes: -LEVO750T14 PO; +LEVO75TAB PO
== END ==
LOC: M WHC 11:23
PROVIDERS: ATTEND Physician Assistant Medical
DX: Z12.31 Encounter for screening mammogram for malignant neoplasm of breast (principal); R92.323 Mammographic fibroglandular density, bilateral breasts

== ENCOUNTER → 2024-08-29 | Outpatient (CLI) | payer MEDICARE | LOC: M ADAMS 09:14 | PROVIDERS: ATTEND Urology | DX: Z96.0 Presence of urogenital implants (principal) ==

== ENCOUNTER → 2024-09-26 | Outpatient (REF) | payer MEDICARE ==
[2024-09-26 14:35] LABS: ALBUMIN 3.7 G/DL (3.2-5.2); ALKALINE PHOSPHATASE 109 U/L (35-104); ALT/SGPT 20 U/L (7.0-40); AST/SGOT 20 U/L (<34); BILIRUBIN,TOTAL 0.9 MG/DL (0.3-1.2); BLOOD UREA NITROGEN 16 MG/DL (9-23); CALCIUM LEVEL 9.4 MG/DL (8.3-10.6); CARBON DIOXIDE LEVEL 30 MMOL/L (20-31); CHLORIDE LEVEL 107 MMOL/L (98-107); CHOLESTEROL LEVEL 128 MG/DL (<200); CREATININE FOR GFR 0.92 MG/DL (0.55-1.30); GLOMERULAR FILTRATION RATE > 60.0 (>39); GLUCOSE, FASTING 134 MG/DL (74-106); HDL CHOLESTEROL 42.6 MG/DL (>40); NON-HDL-C 85.4 MG/DL; POTASSIUM SERUM 4.1 MMOL/L (3.5-5.1); SODIUM LEVEL 144 MMOL/L (136-145); TRIGLYCERIDES LEVEL 117 MG/DL (<150)
[2024-09-26 14:38] LABS: THYROID STIMULATING HORMONE 1.938 uIU/ML (0.55-4.78)
[2024-09-26 14:40] LABS: TOTAL 25(OH) VITAMIN D 53.8 NG/ML (20.0-100.0)
[2024-09-26 14:53] LABS: HEMOGLOBIN A1c 5.4 % (4.0-6.0)
== END ==
LOC: M SFHCADAM 09:23
PROVIDERS: ATTEND Physician Assistant Medical
DX: E11.9 Type 2 diabetes mellitus without complications (principal); E03.9 Hypothyroidism, unspecified; E78.2 Mixed hyperlipidemia; E55.9 Vitamin D deficiency, unspecified

== ENCOUNTER → 2025-03-22 | Outpatient (REF) | payer MEDICARE ==
[2025-03-22 13:41] LABS: BASO # 0.0 10^3/uL (0.0-0.2); BASO % 0.4 % (0.0-1.0); EOS # 0.2 10^3/uL (0.0-0.5); EOS % 2.3 % (0.0-3.0); LYMPH # 0.9 10^3/uL (1.5-5.0); LYMPH % 11.3 % (24.0-44.0); MONO # 0.5 10^3/uL (0.0-0.8); MONO % 6.2 % (2.0-8.0); NEUTROPHILS # 6.3 10^3/uL (1.5-8.5); NEUTROPHILS % 79.5 % (36.0-66.0); PLATELET COUNT, AUTOMATED 159 10^3/uL (150-450)
[2025-03-22 13:42] LABS: ALT/SGPT 23.0 U/L (7.0-40); AST/SGOT 23.0 U/L (<34); CALCIUM LEVEL 9.8 MG/DL (8.3-10.6); CARBON DIOXIDE LEVEL 28.0 MMOL/L (20-31); CHLORIDE LEVEL 105.0 MMOL/L (98-107); CHOLESTEROL LEVEL 141.0 MG/DL (<200); CHOLESTEROL RISK RATIO 2.83 (<5); CREATININE FOR GFR 1.07 MG/DL (0.55-1.30); GLOMERULAR FILTRATION RATE 52.8 (>39); LDL CHOLESTEROL 68.8 MG/DL (<100); NON-HDL-C 91.2 MG/DL; POTASSIUM SERUM 4.2 MMOL/L (3.5-5.1); SODIUM LEVEL 138.0 MMOL/L (136-145); TRIGLYCERIDES LEVEL 112.0 MG/DL (<150)
[2025-03-22 13:45] LABS: TOTAL 25(OH) VITAMIN D 60.3 NG/ML (20.0-100.0)
[2025-03-22 13:46] LABS: FREE T4 1.48 NG/DL (0.89-1.76)
[2025-03-22 14:03] LABS: CREATININE, URINE 153.4 MG/DL; MALB URINE SIEMENS 18.0 MG/L; MAU/CREAT RATIO 11.7 MCG/MG (0.0-30.0)
== END ==
LOC: M SFHCADAM 09:42
PROVIDERS: ATTEND Physician Assistant Medical
DX: E11.9 Type 2 diabetes mellitus without complications (principal); I10 Essential (primary) hypertension; E03.9 Hypothyroidism, unspecified; E78.2 Mixed hyperlipidemia; E55.9 Vitamin D deficiency, unspecified